=== PATIENT | male | born 1930 | race Caucasian/White ===

== ENCOUNTER 2018-07-07 16:08 | Inpatient (IN) ==
--- NOTE | 2018-07-07 16:20 | Emergency Department Note ---
Weakness HPI - General Chief complaint: Weakness Stated complaint: Generalized Weakness Time Seen by Provider: 07/07/18 16:11 Mode of arrival: EMS - History of Present Illness HPI Narrative: 87-year-old male was brought to the emergency department by EMS with a chief complaint of right hand redness, swelling, and pain that his noticed today. His reports that he has been slightly weaker over the last several days. Patient was seen in the emergency department 4 days ago for weakness, and workup was negative for infectious causes. Chest x-ray was normal. The states that she is going to get a lift chair to help him stand at home to help with transfers. She is unwilling at this time to consider placement at [facility]. Patient has a history of Parkinson's, type 2 diabetes, hyperlipidemia, A. fib, anemia, and hypertension. The reports that this afternoon when she checked his blood glucose she got a reading of 380. Accu-Chek here in the emergency department is 181. He denies any chest pain, shortness breath, difficulty breathing, cough, fevers, chills, abdominal pains, nausea,, vomiting, or diarrhea. - Related Data Home Medications Medication Instructions Recorded Confirmed cholecalciferol (vitamin D3) 400 800 unit PO QDAY cap 01/25/17 07/07/18 unit capsule calcium carbonate 600 mg calcium 600 mg PO QDAY tab 12/19/17 07/07/18 (1,500 mg) tablet Carbidopa/Levodopa 2 each PO TID 07/07/18 07/07/18 [Carbidopa-Levodopa 25-100 Tab] Multivit-Min/FA/Lycopen/Lutein 1 tab PO DAILY 07/07/18 07/07/18 [Centrum Silver Tablet] Warfarin Sodium [Jantoven] 2.5 mg PO DAILY 07/07/18 07/07/18 Previous Rx's Medication Instructions Recorded tamsulosin 0.4 mg capsule 0.4 mg PO QDAY #90 cap 12/06/17 digoxin 125 mcg tablet 125 mcg PO QDAY #90 tab 01/30/18 glipizide 5 mg tablet 5 mg PO BID #180 tab 01/30/18 simvastatin 40 mg tablet 40 mg PO QPM #90 tab 03/11/18 pioglitazone 45 mg tablet 45 mg PO QDAY #90 tab 03/18/18 carvedilol 3.125 mg tablet 3.125 mg PO BID #180 tab 04/10/18 finasteride 5 mg tablet 5 mg PO QDAY #90 tab 04/10/18 metformin 500 mg tablet 500 mg PO BID #180 tab 06/10/18 Allergies Allergy/AdvReac Type Severity Reaction Status Date / Time No Known Drug Allergies Allergy Unknown Unknown Verified 07/03/18 14:04 Review of Systems Review of Systems: Except as noted in the HPI, a Review of Systems was found to be negative. Specifically: Constitutional: No chronic fatigue, unexplained weight gain, or weight loss. Eyes: No visual impairment, no pain, watering, discharge, or itching. ENT: No ear or sinus infections. No reoccurring nosebleeds, no chronic nasal congestion. No mouth lesions or dental pain. No throat pain or dysphagia. Respiratory: No wheezing, dyspnea on exertion, or chronic cough. CV: No chest pain, cyanosis, palpitations, dizziness, or fainting. GI: No abdominal pain, reflux symptoms, nausea, vomiting, or diarrhea. Musculoskeletal: Positive weakness and right hand pain, swelling, and redness. See HPI. Neurologic: No headache, numbness, dizziness, or seizures. Endocrine: No hot or cold intolerances, excessive sweating, excessive thirst, or frequent urination. Hematologic/lymphatic: No blood disorder. No swollen lymph nodes. Integumentary: No problem with rashes, eczema, changing of skin lesions. No nail abnormalities. Past Medical History - Past Medical History Medical history: Reports: arthritis, atrial fibrillation, coronary artery disease, DM, hyperlipidemia, hypertension, other Surgical history ED: Reports: cataract, cholecystectomy, herniorrhaphy, knee replacement (bilateral), orthopedic, other (back, rotator cuff) - Social History smoking status: Former smoker Alcohol use: Reports: None Physical Exam Limitations: no limitations General appearance: alert, in no apparent distress Head: normal inspection Eye: Present: normal appearance, PERRL, EOMI. Absent: scleral icterus, conjunctival injection ENT: mucous membranes moist Neck: Present: trachea midline. Absent: lymphadenopathy, thyromegaly Chest: Present: normal inspection, symmetric chest wall rise. Absent: tenderness Respiratory: Present: normal lung sounds bilaterally. Absent: respiratory distress, wheezes, stridor, accessory muscle use, prolonged expiratory phase Cardiovascular: Present: regular rate, normal rhythm. Absent: systolic murmur, diastolic murmur Abdominal: Present: soft, normal bowel sounds. Absent: distention, tenderness, rigidity Extremities: Present: normal inspection, full ROM, normal capillary refill. Absent: pretibial edema Hand: Present: other (Erythema and swelling to the base of right thumb. This area is tender to touch. Decreased range of motion due to pain. Radial pulse 2 +. Capillary refill less than 3 seconds. Sensation normal.) Back: Present: normal inspection, full ROM Neurological: Present: alert, oriented X3 Psychiatric: Present: normal affect, normal mood Skin: Present: warm, dry, intact Course Vital Signs Temperature 98.4 F 07/07/18 16:09 Pulse Rate 94 H 07/07/18 16:09 Respiratory Rate 20 07/07/18 16:09 Pulse Oximetry (%) 97 07/07/18 16:09 Temperature 97.8 F 07/07/18 18:37 Pulse Rate 94 H 07/07/18 18:56 Respiratory Rate 23 H 07/07/18 18:56 Blood Pressure 192/89 07/07/18 18:47 Pulse Oximetry (%) 100 07/07/18 18:56 Weakness - MDM Narrative Medical decision making narrative: Urinalysis shows moderate bacteria, high amount of white blood cells. Patient is influenza A positive. CBC has a normal white blood count, but lactic acid is a 2.5. The patient does have some weakness. The urine will be sent for culture. Spoke with Dr. Loyd who will accept the patient for admission at [facility] medical floor. - Lab Data Lab results reviewed: Yes I reviewed the patient's lab results. Lab results narrative: Influenza A positive. Result diagrams: 07/07/18 16:30 07/07/18 16:30 Lab Results 07/07/18 07/07/18 07/07/18 Range/Units 16:30 16:30 16:30 WBC 6.9 (4.5-11.0) K/mcL RBC 3.88 L (4.50-5.90) M/mcL Hgb 11.2 L (13.5-16.5) g/dL Hct 33.8 L (41.0-55.0) % MCV 87.2 (80.0-100.0) fL MCH 28.9 (26.0-34.0) pg MCHC 33.2 (31.0-36.0) g/dL RDW 14.3 (11.5-14.5) % Plt Count 177 (140-440) K/mcL MPV 8.4 (7.4-10.4) fL Gran % 85.3 H (38.0-78.0) % Lymph % (Auto) 8.0 L (15.5-49.0) % Pickens % (Auto) 6.7 (1.0-12.0) % Eos % (Auto) 0 (0.0-7.0) % Baso % (Auto) 0 (0.0-2.0) % Gran # 5.9 (1.8-8.0) K/mcL Lymph # (Auto) 0.5 L (1.5-4.8) K/mcL Pickens # (Auto) 0.5 (0.1-0.9) K/mcL Eos # (Auto) 0 (0.0-0.7) K/mcL Baso # (Auto) 0 (0.0-0.3) K/mcL ESR 71 H (0-15) mm/hr VBG Lactic Acid 2.5 H (0.5-2.0) mmol/L Sodium 135 (133-145) mmol/L Potassium 4.5 (3.3-5.1) mmol/L Chloride 100 (96-108) mmol/L Carbon Dioxide 25 (22-30) mmol/L Anion Gap 10.0 (8-16) BUN 12 (8-23) mg/dl Creatinine 0.7 (0.7-1.2) mg/dl GFR Calculation 84 Glucose 207 H (70-105) mg/dL Uric Acid (2.5-8.0) mg/dL Calcium 9.1 (8.6-10.4) mg/dl Total Bilirubin 0.5 (0.0-1.0) mg/dL AST 15 (0-37) U/l ALT < 5 (0-40) U/l Alkaline Phosphatase 100 (39-117) U/L Total Protein 7.0 (5.9-8.4) gm/dL Albumin 3.4 (3.2-5.2) gm/dL Globulin 3.6 (2.2-3.7) gm/dL Albumin/Globulin Ratio 0.9 L (1.0-2.3) Urine Color Urine Appearance Urine pH (5.0-9.0) Ur Specific Harbert (1.000-1.035) Urine Protein (NEG) mg/dL Urine Glucose (UA) (NEG) mg/dL Urine Ketones (NEG) mg/dL Urine Occult Blood (<0.03) mg/dL Urine Nitrate (NEG) Urine Bilirubin (NEG) mg/dL Urine Urobilinogen (NEG) mg/dL Ur Leukocyte Esterase (NEG) /uL Urine RBC (0-1) /hpf Urine WBC (0-4) /hpf Ur Squamous Epith Cells (0-4) /hpf Amorphous Crystals (0) /hpf Urine Bacteria (0) /hpf Hyaline Casts (0-2) /lpf Urine Mucus (0) /hpf Ur Culture Indicated? Rheumatoid Factor (0-14) IU/ml 07/07/18 07/07/18 07/07/18 Range/Units 16:30 16:30 16:44 WBC (4.5-11.0) K/mcL RBC (4.50-5.90) M/mcL Hgb (13.5-16.5) g/dL Hct (41.0-55.0) % MCV (80.0-100.0) fL MCH (26.0-34.0) pg MCHC (31.0-36.0) g/dL RDW (11.5-14.5) % Plt Count (140-440) K/mcL MPV (7.4-10.4) fL Gran % (38.0-78.0) % Lymph % (Auto) (15.5-49.0) % Pickens % (Auto) (1.0-12.0) % Eos % (Auto) (0.0-7.0) % Baso % (Auto) (0.0-2.0) % Gran # (1.8-8.0) K/mcL Lymph # (Auto) (1.5-4.8) K/mcL Pickens # (Auto) (0.1-0.9) K/mcL Eos # (Auto) (0.0-0.7) K/mcL Baso # (Auto) (0.0-0.3) K/mcL ESR (0-15) mm/hr VBG Lactic Acid (0.5-2.0) mmol/L Sodium (133-145) mmol/L Potassium (3.3-5.1) mmol/L Chloride (96-108) mmol/L Carbon Dioxide (22-30) mmol/L Anion Gap (8-16) BUN (8-23) mg/dl Creatinine (0.7-1.2) mg/dl GFR Calculation Glucose (70-105) mg/dL Uric Acid 4.9 (2.5-8.0) mg/dL Calcium (8.6-10.4) mg/dl Total Bilirubin (0.0-1.0) mg/dL AST (0-37) U/l ALT (0-40) U/l Alkaline Phosphatase (39-117) U/L Total Protein (5.9-8.4) gm/dL Albumin (3.2-5.2) gm/dL Globulin (2.2-3.7) gm/dL Albumin/Globulin Ratio (1.0-2.3) Urine Color Jessica Urine Appearance Cloudy Urine pH 5.0 (5.0-9.0) Ur Specific Harbert 1.021 (1.000-1.035) Urine Protein 30 A (NEG) mg/dL Urine Glucose (UA) Negative (NEG) mg/dL Urine Ketones 5/tr A (NEG) mg/dL Urine Occult Blood Neg (<0.03) mg/dL Urine Nitrate Neg (NEG) Urine Bilirubin Neg (NEG) mg/dL Urine Urobilinogen 2.0 A (NEG) mg/dL Ur Leukocyte Esterase 250 A (NEG) /uL Urine RBC 2 H (0-1) /hpf Urine WBC 29 H (0-4) /hpf Ur Squamous Epith Cells 6 H (0-4) /hpf Amorphous Crystals Few A (0) /hpf Urine Bacteria Mod A (0) /hpf Hyaline Casts 1 (0-2) /lpf Urine Mucus Mod (0) /hpf Ur Culture Indicated? No Rheumatoid Factor < 10 (0-14) IU/ml - Radiology Data Radiology results reviewed: Yes I reviewed the patient's radiology results. Procedure(s): XR hand comp RT 3V Accession Number(s): [id number] CLINICAL INFORMATION: Pain and erythema COMPARISON: None. FINDINGS: There is no evidence of osteomyelitis or other focal osseous abnormalities. Moderate periarticular osteoporosis noted however. Severe degenerative change of the distal radial ulnar, STT, first CMC and the second and third MCP joints with moderate degenerative change in the interphalangeal joints. Heavy chondrocalcinosis noted in the TFCC. Mild diffuse soft tissue swelling noted which could indicate cellulitis IMPRESSION: Mild soft tissue swelling which could indicate cellulitis. No evidence of osteomyelitis. Multilevel degenerative change Heavy chondrocalcinosis in the TFCC the which may related to gout or pseudogout Procedure(s): XR chest 2V Accession Number(s): [id number] CLINICAL INFORMATION: Weakness COMPARISON: 07/03/2018 and 04/03/2016 FINDINGS: The heart is mildly enlarged but unchanged. Mediastinum and pulmonary vessels are normal. Mild scarring in the posterior left lower lobe is unchanged. Both costophrenic angles are blunted by scar as previously seen IMPRESSION: No acute disease Disposition Pt seen by [facility] INTERFACE DEVELOPER/PA only: Yes Clinical Impression: Influenza A, Weakness Disposition: Xfer As Inpt ([facility]) Condition: Fair Referrals: Benji Lira MD [Primary Care Provider] -
[2018-07-07 17:04] LABS: Basophils # (Auto) 0 K/mcL (0.0-0.3); Basophils % (Auto) 0 % (0.0-2.0); Eosinophils # (Auto) 0 K/mcL (0.0-0.7); Eosinophils % (Auto) 0 % (0.0-7.0); Granulocytes % (Auto) 85.3 % (38.0-78.0); Lymphocytes # (Auto) 0.5 K/mcL (1.5-4.8); Mean Cell Volume 87.2 fL (80.0-100.0); Mean Corpuscular HGB Conc 33.2 g/dL (31.0-36.0); Mean Corpuscular Hemoglobin 28.9 pg (26.0-34.0); Monocytes # (Auto) 0.5 K/mcL (0.1-0.9); Monocytes % (Auto) 6.7 % (1.0-12.0); Platelet Count 177 K/mcL (140-440); RBC 3.88 M/mcL (4.50-5.90); Red Cell Distribution Width 14.3 % (11.5-14.5)
[2018-07-07 17:18] LABS: Appearance,Urine CLOUDY; Bacteria,Urine MOD /hpf (0); Bilirubin,Urine NEG (NEG); Color,Urine AMBER; Glucose,Urine (UA) NEGATIVE (NEG); Leukocyte Esterase,Urine 250 /uL (NEG); Mucus,Urine MOD /hpf (0); Protein,Urine 30 mg/dL (NEG); Specific Gravity,Urine 1.021 (1.000-1.035); Urine Amorphous Crystals FEW /hpf (0); Urine Blood NEG mg/dL (<0.03); Urine Hyaline Cast 1 /lpf (0-2); Urine RBC 2 /hpf (0-1); Urine Squamous Epithelial Cell 6 /hpf (0-4); Urine WBC 29 /hpf (0-4)
[2018-07-07 17:22] LABS: Uric Acid 4.9 mg/dL (2.5-8.0)
[2018-07-07 17:24] LABS: ALT/SGPT < 5 U/l (0-40); Albumin 3.4 gm/dL (3.2-5.2); Albumin/Globulin Ratio 0.9 (1.0-2.3); Alkaline Phosphatase 100 U/L (39-117); Blood Urea Nitrogen 12 mg/dl (8-23)
[2018-07-07 17:37] LABS: Rheumatoid Factor < 10 IU/ml (0-14)
[2018-07-07 17:57] LABS: Erythrocyte Sedimentation Rate 71 mm/hr (0-15)
--- NOTE | 2018-07-07 18:01 | XRay Report ---
CLINICAL INFORMATION: Weakness COMPARISON: 07/03/2018 and 04/03/2016 FINDINGS: The heart is mildly enlarged but unchanged. Mediastinum and pulmonary vessels are normal. Mild scarring in the posterior left lower lobe is unchanged. Both costophrenic angles are blunted by scar as previously seen IMPRESSION: No acute disease Interpreted and Authenticated by: Chalino Katz 07/07/18
--- NOTE | 2018-07-07 18:03 | XRay Report ---
CLINICAL INFORMATION: Pain and erythema COMPARISON: None. FINDINGS: There is no evidence of osteomyelitis or other focal osseous abnormalities. Moderate periarticular osteoporosis noted however. Severe degenerative change of the distal radial ulnar, STT, first CMC and the second and third MCP joints with moderate degenerative change in the interphalangeal joints. Heavy chondrocalcinosis noted in the TFCC. Mild diffuse soft tissue swelling noted which could indicate cellulitis IMPRESSION: Mild soft tissue swelling which could indicate cellulitis. No evidence of osteomyelitis. Multilevel degenerative change Heavy chondrocalcinosis in the TFCC the which may related to gout or pseudogout Interpreted and Authenticated by: Chalino Katz 07/07/18
[2018-07-07] MEDS ORDERED: 0.9 % SODIUM CHLORIDE 1,000 ML IV ONE ×2 (18:37→19:19)
[2018-07-07] MEDS ORDERED: VANCOMYCIN 1,000 MG in 0.9 % SODIUM CHLORIDE 250 ML IV ONE (18:50)
[2018-07-07] MEDS ORDERED: DEXTROSE 50% 50 ML VIAL IV PRN ×2 (19:00→19:46)
[2018-07-07] MEDS ORDERED: cefTRIAXone 2 GM in DEXTROSE 5% IN WATER 50 ML IV SCH (19:00)
[2018-07-07] MEDS ORDERED: DEXTROSE 31 GM ORAL.SUSP PO PRN ×2 (19:00→19:46)
--- NOTE | 2018-07-07 19:02 | Emergency Department Note ---
ED Note Addendum Note Addendum: Mid-level agree with diagnosis and treatment patient appears to have influenza positive test UA and elevated lactic acid plan patient admitted to the hospitalist at [facility]
--- NOTE | 2018-07-07 19:06 | Internal Med History&Physical ---
Medical - H&P: HPI Patient information: Note initiated : 07/07/18 at 7:01 pm Service Date, if different from initiated Date: [] Patient: Hugo Yang a 87 y/o M admitted on for Generalized Weakness. Chief Complaint: [] History of present illness: Mr. Yang is a 87 year old M with h/o parkinsons disease, with gradually declining health, presents to the ER today with complaints of weakness going on for the last few days, was present in the ER on the sixth of this month with complaints of weakness workup was unrevealing at that time. The patient continued to remain weak, had an episode of diarrhea yesterday, and today the noticed redness and swelling on the right wrist at the base of the thumb. This region is painful erythematous and warm to touch and therefore she brought him back to the hospital for further evaluation. The patient complains about some pain in the thumb, otherwise has no complaints. He uses diapers and denies any urinary complaints. According to the he has been eating okay but has not been drinking enough fluids. She is finding it hard to take care of him at home at this time. On my history taking there was no mention about respiratory symptoms however the ED did check for influenza and influenza is positive. The patient denies any headache changes in vision, has chronic difficulty in swallowing denies any chest pain shortness of breath denies any abdominal pain nausea vomiting denies any other joint issues except for the swelling in the right hand. In the emergency room on presentation the temperature is 98.4, heart rate 91 blood pressure 164 x 73 saturating 100% on room air. Patient has WBC count of 6.9 hemoglobin 11.2 platelets 177, patient has 85% granulocytes. Chemistry shows sodium of 135 potassium 4.5 bicarbonate 25 and creatinine 0.7, uric acid is 4.9. ESR is elevated at 71, lactic acid is elevated at 2.5, urinalysis is positive leukocyte esterase RBCs and WBCs but also has some epithelial cells and mucus. RA test is negative Hand x-ray shows mild diffuse soft tissue swelling likely cellulitis, chest x- ray is interpreted as negative. Given old age, inability to manage the patient at home, cellulitis of the hand with elevated lactic acid we will admit this patient as inpatient status to the hospital. The patient will likely need more than 2 midnight stay for IV antibiotics, as well as rehab All systems: reviewed and no additional remarkable complaints except as stated ( as per HPI rest negative) Medical - H&P: PMH Medical history: Medical History Urinary tract infection (Acute) Generalized weakness (Acute) Abrasion head (Acute) Fall (Acute) Primary atypical pneumonia (Acute) Community acquired pneumonia (Resolved) Benign prostatic hyperplasia without lower urinary tract symptoms (Chronic) Dysphagia (Chronic) Wellness examination (Chronic 06/20/10) Vitreous degeneration (Chronic) Vitamin D deficiency (Chronic 02/09/14) Skin malignant neoplasm (Chronic) Pseudophakia (Chronic) Diabetic neuropathy (Chronic) Myelodysplastic syndrome (Chronic) Lack of coordination (Chronic) Kyphosis (acquired) (postural) (Chronic) Hypertension, essential (Chronic) Hyperlipidemia (Chronic) Hydrocele (Chronic) Shingles (herpes zoster) polyneuropathy (Chronic) Inguinal hernia (Chronic) Fatigue (Chronic 06/23/13) Diabetes mellitus, type II (Chronic) Constipation (Chronic 11/08/14) BPH without obstruction/lower urinary tract symptoms (Chronic 01/12/14) Blepharitis (Chronic) Atrial fibrillation (Chronic) Anemia (Chronic 12/10/13) Actinic keratitis (Chronic) Acute respiratory failure with hypoxia (Resolved) Sepsis (Resolved) Cellulitis (Inactive) Irregular heart beats (Inactive) Joint pain (Inactive) PPD screening test (Inactive 07/29/81) Surgical history: Past Surgical History H/O colonoscopy (Inactive) H/O rotator cuff surgery (Inactive) History of back surgery (Inactive) History of hernia surgery (Inactive) History of knee replacement procedure of left knee (Inactive) History of knee replacement procedure of right knee (Inactive) Hx of cholecystectomy (Inactive) Hx of tonsillectomy (Inactive) Pertinent family history: Family History Brother Diabetes mellitus Acute myocardial infarction Mother Diabetes mellitus Acute myocardial infarction Father Cerebrovascular accident Medical - H&P: Meds Home Medications Medication Instructions Recorded Confirmed Type cholecalciferol (vitamin D3) 400 800 unit PO QDAY cap 01/25/17 07/07/18 History unit capsule tamsulosin 0.4 mg capsule 0.4 mg PO QDAY #90 cap 12/06/17 07/07/18 Rx calcium carbonate 600 mg calcium 600 mg PO QDAY tab 12/19/17 07/07/18 History (1,500 mg) tablet digoxin 125 mcg tablet 125 mcg PO QDAY #90 tab 01/30/18 07/07/18 Rx glipizide 5 mg tablet 5 mg PO BID #180 tab 01/30/18 07/07/18 Rx simvastatin 40 mg tablet 40 mg PO QPM #90 tab 03/11/18 07/07/18 Rx pioglitazone 45 mg tablet 45 mg PO QDAY #90 tab 03/18/18 07/07/18 Rx carvedilol 3.125 mg tablet 3.125 mg PO BID #180 tab 04/10/18 07/07/18 Rx finasteride 5 mg tablet 5 mg PO QDAY #90 tab 04/10/18 07/07/18 Rx metformin 500 mg tablet 500 mg PO BID #180 tab 06/10/18 07/07/18 Rx Carbidopa/Levodopa 2 each PO TID 07/07/18 07/07/18 History [Carbidopa-Levodopa 25-100 Tab] Multivit-Min/FA/Lycopen/Lutein 1 tab PO DAILY 07/07/18 07/07/18 History [Centrum Silver Tablet] Warfarin Sodium [Jantoven] 2.5 mg PO DAILY 07/07/18 07/07/18 History Allergies Allergy/AdvReac Type Severity Reaction Status Date / Time No Known Drug Allergies Allergy Unknown Unknown Verified 07/03/18 14:04 Medical - H&P: Exam - Constitutional Vitals: Temp Pulse Resp BP Pulse Ox 97.8 F 94 H 23 H 192/89 100 07/07/18 18:37 07/07/18 18:56 07/07/18 18:56 07/07/18 18:47 07/07/18 18:56 Exam: GENERAL: The patient is thin frail old gentleman, in no apparent distress. Is alert and oriented x3. but hard of hearing VITAL SIGNS: Reviewed and as noted elsewhere. HEENT: Head is normocephalic and atraumatic. Extraocular muscles are intact. Pupils are equal, round, and reactive to light. Nares appeared normal. Mouth appears any without lesions. Mucous membranes are dry NECK: Normal to inspection, Supple, No lymphadenopathy or thyromegaly. LUNGS: Air entry equal on both sides, no wheezing, crackles or rhonchi noted. No accessory muscles of respiration HEART: Regular rate and rhythm normal, S1 and S2 heard, no Gallop, S3 or Rub Noted, No Gross murmur heard. ABDOMEN: Soft, nontender, and nondistended. Positive bowel sounds. No hepatosplenomegaly was noted. EXTREMITIES: No cyanosis, clubbing, rash, lesions or edema. NEUROLOGIC: Cranial nerves II through XII are grossly intact. Motor and Sensory System Grossly Intact. Masked facies, sluggish movements (parkinsons) PSYCHIATRIC: Normal affect, Normal Mood. Appropriate Behavior. SKIN: No ulceration or wounds noted, No jaundice, No rash noted. Right hand base of right hand, carpo metacarpal joint/ there is swelling of the hand, erythema and tenderness, no fluctuation. Medical - H&P: Reslt - Labs CBC & Chem 7: 07/07/18 16:30 07/07/18 16:30 Labs: Short CBC 07/07/18 Range/Units 16:30 WBC 6.9 (4.5-11.0) K/mcL Hgb 11.2 L (13.5-16.5) g/dL Hct 33.8 L (41.0-55.0) % Plt Count 177 (140-440) K/mcL BMP 07/07/18 16:30 Sodium 135 Potassium 4.5 Chloride 100 Carbon Dioxide 25 BUN 12 Creatinine 0.7 Glucose 207 H Calcium 9.1 Liver Function 07/07/18 Range/Units 16:30 Total Bilirubin 0.5 (0.0-1.0) mg/dL AST 15 (0-37) U/l ALT < 5 (0-40) U/l Alkaline Phosphatase 100 (39-117) U/L Albumin 3.4 (3.2-5.2) gm/dL Urine 07/07/18 Range/Units 16:44 Urine Color Jessica Urine Appearance Cloudy Urine pH 5.0 (5.0-9.0) Ur Specific Montara 1.021 (1.000-1.035) Urine Protein 30 A (NEG) mg/dL Urine Glucose (UA) Negative (NEG) mg/dL Medical - H&P: A/P - Narrative A/P Narrative: A/P Hand Cellulitis- Start on IV vancomycin and IV Rocephin, blood cultures sent, follow up results, monitor closely. consider hand surgery consult if worsening. Sepsis/ lactic acidosis- patient has source of infection and elevated lactate, IV fluids given, will trend lactate, be gentle with IV fluids given old age, BP is stable. check rectal temperature. Possible gout flare? Although uric acid is normal, pt location makes me wonder if gout is at play here. Will cover with colchicine for now, Consider further imaging if needed. UTI- patient ua is abnormal, but pt has no symptoms, uses a daiper, will recheck ua, he should be covered by ABX at this time. Influenzae A- patient has no symptoms suggestive of influenza, but test is positive, given old age, at this time, I would start patient on tamiflu for now. Diabetes - Hold oral medications, start on SSI insulin for glucose control HTN- Resume home bp medications Atrial fibrillation- Rate controlled, continue coumadin, check inr, coumadin to be managed by pharmacy Parkinsons disease- home medications to be resumed. It seems his disease is progressing and he is progressively being limited in his activities. Not sure if he is still following with neurology, will follow up. May need some changes in medication regime. Dysphagia- ST evaluation Weakness- marija get rehab with OT/PT DVT hep sq Diet dysphagia diet, level 2 Full code Social History - Tobacco smoking status: Former smoker - Quit Details quit date: 10/01/75 pack-years: 1 - Alcohol alcohol intake frequency: does not drink - Substance use substance use type: does not use
[2018-07-07] MEDS ORDERED: ALBUTEROL SULFATE 2.5 MG/3 ML NEBULIZER NEB PRN (19:46)
[2018-07-07] MEDS ORDERED: HYDROmorphone 2 MG/ML VIAL IV PRN (19:46)
[2018-07-07] MEDS ORDERED: ONDANSETRON 4 MG/2 ML VIAL IV PRN (19:46)
[2018-07-07] MEDS ORDERED: ACETAMINOPHEN 325 MG TABLET PO PRN (19:46)
[2018-07-07] MEDS ORDERED: NALOXONE HCL 0.4 MG/ML VIAL IV PRN (19:46)
[2018-07-07] MEDS ORDERED: cefTRIAXone 1 GM in DEXTROSE 5% IN WATER 50 ML IV SCH (19:46)
[2018-07-07] MEDS: COLCHICINE 0.6 MG TABLET PO SCH ×2 (20:46→21:45)
[2018-07-07] MEDS: CARVEDILOL 3.125 MG TABLET PO SCH (20:46)
[2018-07-07] MEDS: oxyCODONE HCL 5 MG TABLET PO PRN (20:46)
[2018-07-07] MEDS: HEPARIN 5,000 UNIT/ML VIAL SQ SCH (20:47)
[2018-07-07] MEDS: cefTRIAXone 1 GM VIAL IV SCH (20:47)
[2018-07-07] MEDS: CARBIDOPA/LEVODOPA 25/100 TABLET PO SCH (20:47)
[2018-07-07] MEDS: SIMVASTATIN 40 MG TABLET PO SCH (20:47)
[2018-07-07] MEDS: OSELTAMIVIR PHOSPHATE 75 MG CAPSULE PO SCH (20:47)
[2018-07-07] MEDS ORDERED: cloNIDine HCL 0.1 MG TABLET PO PRN (20:48)
[2018-07-07] MEDS: LACTATED RINGERS 1,000 ML IV SCH (20:48)
[2018-07-07] MEDS: INSULIN LISPRO 1 UNIT/0.01 ML UNIT SQ SCH (20:49)
[2018-07-07] MEDS ORDERED: INSULIN LISPRO 1 UNIT/0.01 ML UNIT SQ SCH (21:00)
[2018-07-07] MEDS: 0.9 % SODIUM CHLORIDE 10 ML SYRINGE IV SCH (21:46)
[2018-07-08] MEDS: LACTATED RINGERS 1,000 ML IV SCH (03:55)
[2018-07-08] MEDS: 0.9 % SODIUM CHLORIDE 10 ML SYRINGE IV SCH ×3 (05:26→23:20)
[2018-07-08 05:45] LABS: Basophils # (Auto) 0 K/mcL (0.0-0.3); Basophils % (Auto) 0.2 % (0.0-2.0); Eosinophils # (Auto) 0 K/mcL (0.0-0.7); Eosinophils % (Auto) 0 % (0.0-7.0); Granulocytes % (Auto) 80.3 % (38.0-78.0); Lymphocytes # (Auto) 0.8 K/mcL (1.5-4.8); Mean Cell Volume 88.3 fL (80.0-100.0); Mean Corpuscular Hemoglobin 29.1 pg (26.0-34.0); Monocytes # (Auto) 0.6 K/mcL (0.1-0.9); Monocytes % (Auto) 8.5 % (1.0-12.0); Platelet Count 159 K/mcL (140-440); RBC 3.56 M/mcL (4.50-5.90); Red Cell Distribution Width 14.3 % (11.5-14.5)
[2018-07-08 06:35] LABS: ALT/SGPT < 5 U/l (0-40); Albumin 2.9 gm/dL (3.2-5.2); Albumin/Globulin Ratio 0.9 (1.0-2.3); Alkaline Phosphatase 82 U/L (39-117); Bilirubin,Direct < 0.2 mg/dL (0.0-0.3); Blood Urea Nitrogen 10 mg/dl (8-23); Gamma Glutamyl Transpeptidase 17 U/L (8-61); Uric Acid 4.3 mg/dL (2.5-8.0)
[2018-07-08] MEDS: INSULIN LISPRO 1 UNIT/0.01 ML UNIT SQ SCH ×4 (08:38→20:57)
[2018-07-08] MEDS ORDERED: MAGNESIUM SULFATE 2 GM/50 ML BAG IV ONE (08:59)
[2018-07-08] MEDS ORDERED: WARFARIN 2.5 MG TABLET PO SCH (09:00)
[2018-07-08] MEDS: FINASTERIDE 5 MG TABLET PO SCH (09:11)
[2018-07-08] MEDS: CARBIDOPA/LEVODOPA 25/100 TABLET PO SCH ×3 (09:11→21:15)
[2018-07-08] MEDS: TAMSULOSIN 0.4 MG CAPSULE PO SCH (09:11)
[2018-07-08] MEDS: COLCHICINE 0.6 MG TABLET PO SCH (09:11)
[2018-07-08] MEDS: VITAMIN D3 400 UNIT TABLET PO SCH (09:11)
[2018-07-08] MEDS: CARVEDILOL 3.125 MG TABLET PO SCH ×2 (09:12→17:52)
[2018-07-08] MEDS: cefTRIAXone 1 GM VIAL IV SCH (09:12)
[2018-07-08] MEDS: OSELTAMIVIR PHOSPHATE 75 MG CAPSULE PO SCH ×2 (09:12→21:15)
[2018-07-08] MEDS: oxyCODONE HCL 5 MG TABLET PO PRN ×2 (09:12→14:40)
[2018-07-08] MEDS: CALCIUM (OYSTER SHELL) 500 MG TABLET PO SCH (09:12)
[2018-07-08] MEDS: MULTIVIT,THER IRON,CA,FA & MIN 1 TABLET PO SCH (09:12)
[2018-07-08] MEDS: HEPARIN 5,000 UNIT/ML VIAL SQ SCH ×2 (09:13→21:15)
--- NOTE | 2018-07-08 11:57 | Internal Med Progress Note ---
Medical - PN: Subj Patient information: Note initiated : 07/08/18 at 11:55 am Service Date, if different from initiated Date: [] Patient: Hugo Yang a 87 y/o M admitted on 07/07/18 for Generalized Weakness. Chief Complaint: [] Interval history: Mr. Yang is a 87 year old M with h/o parkinsons disease, with gradually declining health, presents to the ER today with complaints of weakness going on for the last few days, was present in the ER on the sixth of this month with complaints of weakness workup was unrevealing at that time. The patient continued to remain weak, had an episode of diarrhea yesterday, and today the noticed redness and swelling on the right wrist at the base of the thumb. This region is painful erythematous and warm to touch and therefore she brought him back to the hospital for further evaluation. The patient complains about some pain in the thumb, otherwise has no complaints. He uses diapers and denies any urinary complaints. According to the he has been eating okay but has not been drinking enough fluids. She is finding it hard to take care of him at home at this time. On my history taking there was no mention about respiratory symptoms however the ED did check for influenza and influenza is positive. The patient denies any headache changes in vision, has chronic difficulty in swallowing denies any chest pain shortness of breath denies any abdominal pain nausea vomiting denies any other joint issues except for the swelling in the right hand. In the emergency room on presentation the temperature is 98.4, heart rate 91 blood pressure 164 x 73 saturating 100% on room air. Patient has WBC count of 6.9 hemoglobin 11.2 platelets 177, patient has 85% granulocytes. Chemistry shows sodium of 135 potassium 4.5 bicarbonate 25 and creatinine 0.7, uric acid is 4.9. ESR is elevated at 71, lactic acid is elevated at 2.5, urinalysis is positive leukocyte esterase RBCs and WBCs but also has some epithelial cells and mucus. RA test is negative Hand x-ray shows mild diffuse soft tissue swelling likely cellulitis, chest x- ray is interpreted as negative. Given old age, inability to manage the patient at home, cellulitis of the hand with elevated lactic acid we will admit this patient as inpatient status to the hospital. The patient will likely need more than 2 midnight stay for IV antibiotics, as well as rehab 07/08 Patient seen and examined, no acute overnight events. Patient still has significant pain in the right wrist, erythema as well as warmth at that site. Looks somewhat better compared to yesterday. Denies any acute complaints or concerns. Labs are stable Plan to get an MRI of the right wrist hand. Consider ortho consult based on results. Pertinent ROS: Denies headache, dizziness Denies chest pain, palpitations Denies cough or shortness of breath Denies abdominal pain, nausea or vomiting. - Constitutional Vitals: Vital Signs Temp Pulse Resp BP Pulse Ox 99.0 F 82 19 159/80 93 07/08/18 08:00 07/08/18 08:00 07/08/18 08:00 07/08/18 08:00 07/08/18 08:00 Period Temp Pulse Resp BP Sys/Aaron Pulse Ox Last 24 Hr 97.8 F-99.7 F 70-95 14-28 154-195/66-123 93-100 Intake and Output 07/07/18 07/08/18 07/08/18 21:59 05:59 13:59 Intake Total 2250 / 2250 1000 / 1000 1110 / 1110 Output Total Balance 2249 / 2249 998 / 998 1109 / 1109 Weight 150 lb 8 oz Intake & Output: Intake & Output 07/07/18 07/08/18 07/08/18 21:59 05:59 13:59 Intake Total 2250 / 2250 1000 / 1000 1110 / 1110 Output Total / Balance 2249 / 2249 998 / 998 1109 / 1109 Weight 150 lb 8 oz Intake: IV 2250 / 2250 1000 / 1000 1050 / 1050 Sodium Chloride 0.9% 1,000 ml @ 1500 / 1500 Wide Open IV BOLUS ONE Rx#: [id number] Lactated Ringers 1,000 ml @ 150 1000 / 1000 mls/hr IV .[id number] [facility] Rx#: [id number] Vancomycin 1,000 mg In Sodium 183 / 183 Chloride 0.9% 250 ml @ 250 mls/ hr IV ONCE ONE Rx#:[id number] Oral 60 / 60 Output: # of times incontinent of urine 2 / 2 Other: Meal Breakfast Percent of Meal Consumed 75% Feeding Ability Total Assistance Urine Appearance Cloudy Sediment Urine Color Straw Exam: Constitutional; Afebrile, cooperative, alert, not in distress. Frail old gentleman ERespiratory system: Air Entry equal on both sides, No crackles or wheezing, no rhonchi. CVS- Rate rhythm irregular, S1,S2 heard, no gallop, no rub. 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 Right wrist- erythema, increased warmth, tender to touch. Medical - PN: Obj Da - Labs CBC & Chem 7: 07/08/18 03:35 07/08/18 03:35 Labs: Abnormal Lab Results 07/08/18 07/08/18 07/08/18 03:35 03:35 03:35 RBC 3.56 L Hgb 10.4 L Hct 31.4 L Gran % 80.3 H Lymph % (Auto) 11.0 L Lymph # (Auto) 0.8 L ESR PT 29.7 H INR 2.9 H VBG Lactic Acid Creatinine 0.6 L Glucose 129 H Calcium 8.4 L Magnesium 1.3 L Albumin 2.9 L Albumin/Globulin Ratio 0.9 L Urine Protein Urine Ketones Urine Urobilinogen Ur Leukocyte Esterase Urine RBC Urine WBC Ur Squamous Epith Cells Amorphous Crystals Urine Bacteria 07/07/18 07/07/18 07/07/18 16:44 16:30 16:30 RBC Hgb Hct Gran % Lymph % (Auto) Lymph # (Auto) ESR PT INR VBG Lactic Acid 2.5 H Creatinine Glucose 207 H Calcium Magnesium Albumin Albumin/Globulin Ratio 0.9 L Urine Protein 30 A Urine Ketones 5/tr A Urine Urobilinogen 2.0 A Ur Leukocyte Esterase 250 A Urine RBC 2 H Urine WBC 29 H Ur Squamous Epith Cells 6 H Amorphous Crystals Few A Urine Bacteria Mod A 07/07/18 16:30 RBC 3.88 L Hgb 11.2 L Hct 33.8 L Gran % 85.3 H Lymph % (Auto) 8.0 L Lymph # (Auto) 0.5 L ESR 71 H PT INR VBG Lactic Acid Creatinine Glucose Calcium Magnesium Albumin Albumin/Globulin Ratio Urine Protein Urine Ketones Urine Urobilinogen Ur Leukocyte Esterase Urine RBC Urine WBC Ur Squamous Epith Cells Amorphous Crystals Urine Bacteria Meds: Medications Albuterol Sulfate (Ventolin) 2.5 mg NEB Q2HP PRN PRN Reason: Shortness Of Breath Calcium Carbonate/Glycine (Oscal) 600 mg PO QDAY [facility] Last Admin: 07/08/18 09:12 Dose: 600 mg Carbidopa/Levodopa (Sinemet 25/100) 2 tab PO TID [facility] Last Admin: 07/08/18 09:11 Dose: 2 tab Carvedilol (Coreg) 3.125 mg PO BIDCC [facility] Last Admin: 07/08/18 09:12 Dose: 3.125 mg Ceftriaxone Sodium (Rocephin) 1 gm IV Q24H [facility] Last Admin: 07/08/18 09:12 Dose: 1 gm Clonidine HCl (Catapres) 0.1 mg PO Q4HP PRN PRN Reason: Hypertension Colchicine (Colcrys) 0.6 mg PO BID [facility] Last Admin: 07/08/18 09:11 Dose: 0.6 mg Dextrose (Dextrose 50%) 0 ml IV UD PRN PRN Reason: Hypoglycemia Diagnostic Test (Pha) (Accu-Chek) 1 each FS ACHS [facility] Last Admin: 07/08/18 08:37 Dose: 1 each Digoxin (Lanoxin) 125 mcg PO DAILY@1200 [place] Finasteride (Proscar) 5 mg PO QDAY [facility] Last Admin: 07/08/18 09:11 Dose: 5 mg Glucose (Insta-Glucose) 15 gm PO PRN PRN PRN Reason: Hypoglycemia Heparin Sodium (Porcine) (Heparin) 5,000 unit SQ Q12 [facility] Last Admin: 07/08/18 09:13 Dose: 5,000 unit Hydromorphone HCl (Dilaudid) 0.5 mg IV Q2HP PRN PRN Reason: PAIN LEVEL > 6 Last Admin: 07/07/18 20:47 Dose: 0.5 mg Acetaminophen (Ofirmev) 1,000 mg in 100 mls @ 200 mls/hr IV TID [facility] Insulin Human Lispro (Humalog) 0 unit SQ [facility]; Protocol Last Admin: 07/08/18 08:38 Dose: Not Given Iron Carb/Multivit/[place]/Folic Acid (Multivitamin W/Minerals) 1 tab PO DAILY [facility] Last Admin: 07/08/18 09:12 Dose: 1 tab Naloxone HCl (Narcan) 0.1 mg IV Q2MIN PRN PRN Reason: Opiate Reversal Ondansetron HCl (Zofran) 4 mg IV Q6HP PRN PRN Reason: Nausea And Vomiting Oseltamivir Phosphate (Tamiflu) 75 mg PO BID [facility] Last Admin: 07/08/18 09:12 Dose: 75 mg Oxycodone HCl (Roxicodone) 5 mg PO Q4HP PRN PRN Reason: PAIN LEVEL 3-6 Last Admin: 07/08/18 09:12 Dose: 5 mg Simvastatin (Zocor) 40 mg PO QPM [facility] Last Admin: 07/07/18 20:47 Dose: 40 mg Sodium Chloride (Saline Flush) 10 ml IV Q8 [facility] Last Admin: 07/08/18 05:26 Dose: 10 ml Tamsulosin HCl (Flomax) 0.4 mg PO QDAY [facility] Last Admin: 07/08/18 09:11 Dose: 0.4 mg Vitamin D (Vitamin D3) 800 unit PO QDAY [facility] Last Admin: 07/08/18 09:11 Dose: 800 unit Warfarin Sodium (Coumadin Per Pharmacy) 1 order PO DAILY@1400 [facility] Medical - PN: A/P - Time Spent With Patient Total time spent is greater than 50% in coordination of care (as documented) at patient's floor/unit and/or counseling patient: - Narrative A/P Narrative: A/P Hand Cellulitis/ vs Osteomyelitis - on IV vancomycin and IV Rocephin, blood cultures sent, follow up results, monitor closely. consider hand surgery consult if worsening. Try to Get MRI of the hand/wrist today. Sepsis/ lactic acidosis- resolved Possible gout flare? Although uric acid is normal, pt location makes me wonder if gout is at play here. Will cover with colchicine for now, see if it responds , d/c same if no improvement in 24-48 hrs UTI- patient ua is abnormal, but pt has no symptoms, uses a daiper, will recheck ua, he should be covered by ABX at this time. Influenzae A- patient has no symptoms suggestive of influenza, but test is positive, given old age, at this time, I would start patient on tamiflu for now. Diabetes - Hold oral medications, start on SSI insulin for glucose control HTN- Resume home bp medications Atrial fibrillation- Rate controlled, continue coumadin, check inr, coumadin to be managed by pharmacy Parkinsons disease- home medications to be resumed. It seems his disease is progressing and he is progressively being limited in his activities. Not sure if he is still following with neurology, will follow up. May need some changes in medication regime. Dysphagia- ST evaluation Weakness- marija get rehab with OT/PT DVT hep sq Diet dysphagia diet, level 2 Full code Medical - PN: Qual - VTE Deep Vein Thrombosis/Pulmonary Embolism Present on Admission: No
[2018-07-08] MEDS: ACETAMINOPHEN 1,000 MG/100 ML BOTTLE IV SCH ×2 (14:38→21:14)
[2018-07-08] MEDS: DIGOXIN 125 MCG TABLET PO SCH (14:40)
[2018-07-08] MEDS ORDERED: IOPAMIDOL 100 ML BOTTLE IV ONE (15:58)
[2018-07-08] MEDS ORDERED: 0.45 % SODIUM CHLORIDE 1,000 ML IV SCH (18:15)
--- NOTE | 2018-07-08 18:20 | Cat Scan Report ---
CLINICAL INFORMATION: To cellulitis. Evaluate for osteomyelitis COMPARISON: Wrist films 07/07/2018 TECHNIQUE: 0.625 mm helical slices were obtained through the distal one third radius and ulna through the distal metacarpals. Following reconstruction, 2.5 mm sagittal coronal axial reformatted reprocessed reviewed at bone and soft tissue windows FINDINGS: Mild diffuse osteoporosis is noted. There is a 14 mm cortical/subcortical erosion in the dorsal aspect of the distal radial epiphysis which could indicate a focus of osteomyelitis. There is overlying soft tissue swelling. There is also a 1 cm focal erosion of the dorsal capitate cortex which is likely degenerative but could be infectious. There is heavy chondrocalcinosis in the TFCC region and also calcification throughout the distal radioulnar and ulnar carpal joints with small amounts of calcification in the radiocarpal joint. Severe degeneration of the distal radial ulnar, STT and first CMC joints. Diffuse soft tissue swelling compatible cellulitis appreciated. There are no discrete fluid collections. IMPRESSION: 1. 14 mm cortical last subcortical erosion the dorsal radial epiphysis with overlying soft tissue swelling which could indicate a focus of osteomyelitis. 2. 10 mm focal cortical erosion of the dorsal capitate likely degenerative, but possibly osteomyelitis 3. Multilevel degenerative change 4. Chondrocalcinosis in the TFCC and also calcification within the distal radioulnar ulnar carpal radiocarpal joints 5. Mild diffuse soft tissue swelling compatible with cellulitis Interpreted and Authenticated by: Chalino Katz 07/08/18
[2018-07-08] MEDS ORDERED: cefTRIAXone 2 GM in DEXTROSE 5% IN WATER 50 ML IV SCH (19:00)
[2018-07-08] MEDS: SIMVASTATIN 40 MG TABLET PO SCH (21:15)
[2018-07-09] MEDS: 0.9 % SODIUM CHLORIDE 10 ML SYRINGE IV SCH ×3 (05:26→21:41)
[2018-07-09 06:03] LABS: Basophils # (Auto) 0 K/mcL (0.0-0.3); Basophils % (Auto) 0.1 % (0.0-2.0); Eosinophils # (Auto) 0 K/mcL (0.0-0.7); Eosinophils % (Auto) 0.1 % (0.0-7.0); Granulocytes % (Auto) 82.5 % (38.0-78.0); Lymphocytes # (Auto) 0.6 K/mcL (1.5-4.8); Lymphocytes % (Auto) 8.4 % (15.5-49.0); Mean Cell Volume 88.1 fL (80.0-100.0); Mean Corpuscular HGB Conc 32.7 g/dL (31.0-36.0); Mean Corpuscular Hemoglobin 28.8 pg (26.0-34.0); Monocytes # (Auto) 0.6 K/mcL (0.1-0.9); Monocytes % (Auto) 8.9 % (1.0-12.0); Platelet Count 163 K/mcL (140-440); RBC 3.76 M/mcL (4.50-5.90); Red Cell Distribution Width 14.4 % (11.5-14.5)
[2018-07-09 06:20] LABS: ALT/SGPT < 5 U/l (0-40); Albumin/Globulin Ratio 0.9 (1.0-2.3); Alkaline Phosphatase 83 U/L (39-117); Bilirubin,Direct < 0.2 mg/dL (0.0-0.3); Blood Urea Nitrogen 10 mg/dl (8-23); Gamma Glutamyl Transpeptidase 16 U/L (8-61); Uric Acid 4.2 mg/dL (2.5-8.0)
[2018-07-09] MEDS ORDERED: VANCOMYCIN PER PHARMACY IV SCH (07:30)
[2018-07-09] MEDS: HEPARIN 5,000 UNIT/ML VIAL SQ SCH ×2 (08:05→21:40)
[2018-07-09] MEDS: CARVEDILOL 3.125 MG TABLET PO SCH ×2 (08:05→16:08)
[2018-07-09] MEDS: INSULIN LISPRO 1 UNIT/0.01 ML UNIT SQ SCH ×4 (08:05→21:40)
[2018-07-09] MEDS: VANCOMYCIN 1,500 MG in 0.9 % SODIUM CHLORIDE 500 ML IV SCH (08:05)
[2018-07-09] MEDS: TAMSULOSIN 0.4 MG CAPSULE PO SCH (08:05)
[2018-07-09] MEDS: CALCIUM (OYSTER SHELL) 500 MG TABLET PO SCH (08:05)
[2018-07-09] MEDS: MULTIVIT,THER IRON,CA,FA & MIN 1 TABLET PO SCH (08:05)
[2018-07-09] MEDS: oxyCODONE HCL 5 MG TABLET PO PRN ×2 (08:06→14:57)
[2018-07-09] MEDS: cefTRIAXone 1 GM VIAL IV SCH (08:32)
[2018-07-09] MEDS: CARBIDOPA/LEVODOPA 25/100 TABLET PO SCH ×3 (08:33→21:40)
[2018-07-09] MEDS: VITAMIN D3 400 UNIT TABLET PO SCH (08:33)
[2018-07-09] MEDS: OSELTAMIVIR PHOSPHATE 75 MG CAPSULE PO SCH ×2 (08:33→21:40)
[2018-07-09] MEDS: FINASTERIDE 5 MG TABLET PO SCH (08:34)
[2018-07-09] MEDS: ACETAMINOPHEN 1,000 MG/100 ML BOTTLE IV SCH ×3 (08:57→21:41)
--- NOTE | 2018-07-09 11:32 | Internal Med Progress Note ---
Medical - PN: Subj Patient information: Note initiated : 07/09/18 at 11:29 am Service Date, if different from initiated Date: [] Patient: Hugo Yang a 87 y/o M admitted on 07/07/18 for Generalized Weakness. Chief Complaint: [] Interval history: Mr. Yang is a 87 year old M with h/o parkinsons disease, with gradually declining health, presents to the ER today with complaints of weakness going on for the last few days, was present in the ER on the sixth of this month with complaints of weakness workup was unrevealing at that time. The patient continued to remain weak, had an episode of diarrhea yesterday, and today the noticed redness and swelling on the right wrist at the base of the thumb. This region is painful erythematous and warm to touch and therefore she brought him back to the hospital for further evaluation. The patient complains about some pain in the thumb, otherwise has no complaints. He uses diapers and denies any urinary complaints. According to the he has been eating okay but has not been drinking enough fluids. She is finding it hard to take care of him at home at this time. On my history taking there was no mention about respiratory symptoms however the ED did check for influenza and influenza is positive. The patient denies any headache changes in vision, has chronic difficulty in swallowing denies any chest pain shortness of breath denies any abdominal pain nausea vomiting denies any other joint issues except for the swelling in the right hand. In the emergency room on presentation the temperature is 98.4, heart rate 91 blood pressure 164 x 73 saturating 100% on room air. Patient has WBC count of 6.9 hemoglobin 11.2 platelets 177, patient has 85% granulocytes. Chemistry shows sodium of 135 potassium 4.5 bicarbonate 25 and creatinine 0.7, uric acid is 4.9. ESR is elevated at 71, lactic acid is elevated at 2.5, urinalysis is positive leukocyte esterase RBCs and WBCs but also has some epithelial cells and mucus. RA test is negative Hand x-ray shows mild diffuse soft tissue swelling likely cellulitis, chest x- ray is interpreted as negative. Given old age, inability to manage the patient at home, cellulitis of the hand with elevated lactic acid we will admit this patient as inpatient status to the hospital. The patient will likely need more than 2 midnight stay for IV antibiotics, as well as rehab 07/08 Patient seen and examined, no acute overnight events. Patient still has significant pain in the right wrist, erythema as well as warmth at that site. Looks somewhat better compared to yesterday. Denies any acute complaints or concerns. Labs are stable Plan to get an MRI of the right wrist hand. Consider ortho consult based on results. 07/09 Patient seen and examined, was drowsy this morning had received oxycodone. Reviewed chart, noted that he has pain and swelling on the right side of the hand. This has not improved. Some concern about pain on the left hand but no evidence of infection there. 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 Dr Jeff consulted, feels likely gout or pseudogout, advised aspiration will see if radiolgoy can aspirate the joint. Pertinent ROS: drowsy - Constitutional Vitals: Vital Signs Temp Pulse Resp BP Pulse Ox 99.0 F 89 19 168/92 93 07/09/18 07:53 07/09/18 08:00 07/09/18 08:00 07/09/18 07:53 07/09/18 08:00 Period Temp Pulse Resp BP Sys/Aaron Pulse Ox Last 24 Hr 97.0 F-99.6 F 64-89 18-22 123-168/59-92 93-95 Intake and Output 07/08/18 07/09/18 07/09/18 21:59 05:59 13:59 Intake Total 120 / 120 100 / 100 Output Total Balance 118 / 118 99 / 99 Weight 157 lb Intake & Output: Intake & Output 07/08/18 07/09/18 07/09/18 21:59 05:59 13:59 Intake Total 120 / 120 100 / 100 Output Total Balance 118 / 118 99 / 99 Weight 157 lb Intake: IV 100 / 100 100 / 100 Oral 20 / 20 Output: # of times incontinent of urine Other: Meal Dinner Breakfast Percent of Meal Consumed 3 bites 10% Feeding Ability Total Assistance Total Assistance Urine Color Bright Yellow Urine Odor Normal Exam: Constitutional; Afebrile, usually cooperative when awake. Respiratory system: Air Entry equal on both sides, No crackles or wheezing, no rhonchi. CVS- Rate rhythm irregular, S1,S2 heard, no gallop, no rub. 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, Medical - PN: Obj Da - Labs CBC & Chem 7: 07/09/18 04:00 07/09/18 04:00 Labs: Abnormal Lab Results 07/09/18 07/09/18 07/09/18 04:00 04:00 04:00 RBC 3.76 L Hgb 10.8 L Hct 33.1 L Gran % 82.5 H Lymph % (Auto) 8.4 L Lymph # (Auto) 0.6 L ESR PT 30.3 H INR 2.9 H VBG Lactic Acid Creatinine 0.5 L Glucose 140 H Calcium Phosphorus 2.1 L Magnesium Albumin 3.0 L Albumin/Globulin Ratio 0.9 L Urine Protein Urine Ketones Urine Urobilinogen Ur Leukocyte Esterase Urine RBC Urine WBC Ur Squamous Epith Cells Amorphous Crystals Urine Bacteria 07/08/18 07/08/18 07/08/18 03:35 03:35 03:35 RBC 3.56 L Hgb 10.4 L Hct 31.4 L Gran % 80.3 H Lymph % (Auto) 11.0 L Lymph # (Auto) 0.8 L ESR PT 29.7 H INR 2.9 H VBG Lactic Acid Creatinine 0.6 L Glucose 129 H Calcium 8.4 L Phosphorus Magnesium 1.3 L Albumin 2.9 L Albumin/Globulin Ratio 0.9 L Urine Protein Urine Ketones Urine Urobilinogen Ur Leukocyte Esterase Urine RBC Urine WBC Ur Squamous Epith Cells Amorphous Crystals Urine Bacteria 07/07/18 07/07/18 07/07/18 16:44 16:30 16:30 RBC Hgb Hct Gran % Lymph % (Auto) Lymph # (Auto) ESR PT INR VBG Lactic Acid 2.5 H Creatinine Glucose 207 H Calcium Phosphorus Magnesium Albumin Albumin/Globulin Ratio 0.9 L Urine Protein 30 A Urine Ketones 5/tr A Urine Urobilinogen 2.0 A Ur Leukocyte Esterase 250 A Urine RBC 2 H Urine WBC 29 H Ur Squamous Epith Cells 6 H Amorphous Crystals Few A Urine Bacteria Mod A 07/07/18 16:30 RBC 3.88 L Hgb 11.2 L Hct 33.8 L Gran % 85.3 H Lymph % (Auto) 8.0 L Lymph # (Auto) 0.5 L ESR 71 H PT INR VBG Lactic Acid Creatinine Glucose Calcium Phosphorus Magnesium Albumin Albumin/Globulin Ratio Urine Protein Urine Ketones Urine Urobilinogen Ur Leukocyte Esterase Urine RBC Urine WBC Ur Squamous Epith Cells Amorphous Crystals Urine Bacteria Meds: Medications Albuterol Sulfate (Ventolin) 2.5 mg NEB Q2HP PRN PRN Reason: Shortness Of Breath Calcium Carbonate/Glycine (Oscal) 600 mg PO QDAY [facility] Last Admin: 07/09/18 08:05 Dose: 600 mg Carbidopa/Levodopa (Sinemet 25/100) 2 tab PO TID [facility] Last Admin: 07/09/18 08:33 Dose: 2 tab Carvedilol (Coreg) 3.125 mg PO BIDCC [facility] Last Admin: 07/09/18 08:05 Dose: 3.125 mg Cefepime HCl (Maxipime) 1 gm IV Q12H [facility] Clonidine HCl (Catapres) 0.1 mg PO Q4HP PRN PRN Reason: Hypertension Last Admin: 07/09/18 08:34 Dose: 0.1 mg Dextrose (Dextrose 50%) 0 ml IV UD PRN PRN Reason: Hypoglycemia Diagnostic Test (Pha) (Accu-Chek) 1 each FS ACHS [facility] Last Admin: 07/09/18 08:00 Dose: 1 each Digoxin (Lanoxin) 125 mcg PO DAILY@1200 [facility] Last Admin: 07/08/18 14:40 Dose: 125 mcg Finasteride (Proscar) 5 mg PO QDAY [facility] Last Admin: 07/09/18 08:34 Dose: 5 mg Glucose (Insta-Glucose) 15 gm PO PRN PRN PRN Reason: Hypoglycemia Heparin Sodium (Porcine) (Heparin) 5,000 unit SQ Q12 [facility] Last Admin: 07/09/18 08:05 Dose: 5,000 unit Hydromorphone HCl (Dilaudid) 0.5 mg IV Q2HP PRN PRN Reason: PAIN LEVEL > 6 Last Admin: 07/07/18 20:47 Dose: 0.5 mg Acetaminophen (Ofirmev) 1,000 mg in 100 mls @ 200 mls/hr IV TID [facility] Last Admin: 07/09/18 08:57 Dose: 200 mls/hr Vancomycin HCl 1,500 mg/ (Sodium Chloride) 500 mls @ 333.3 mls/hr IV Q24H [facility] Last Admin: 07/09/18 08:05 Dose: 333.3 mls/hr Insulin Human Lispro (Humalog) 0 unit SQ ACHS [facility]; Protocol Last Admin: 07/09/18 08:05 Dose: 2 unit Iron Carb/Multivit/[place]/Folic Acid (Multivitamin W/Minerals) 1 tab PO DAILY [facility] Last Admin: 07/09/18 08:05 Dose: 1 tab Naloxone HCl (Narcan) 0.1 mg IV Q2MIN PRN PRN Reason: Opiate Reversal Ondansetron HCl (Zofran) 4 mg IV Q6HP PRN PRN Reason: Nausea And Vomiting Oseltamivir Phosphate (Tamiflu) 75 mg PO BID [facility] Last Admin: 07/09/18 08:33 Dose: 75 mg Oxycodone HCl (Roxicodone) 5 mg PO Q4HP PRN PRN Reason: PAIN LEVEL 3-6 Last Admin: 07/09/18 08:06 Dose: 5 mg Simvastatin (Zocor) 40 mg PO QPM [facility] Last Admin: 07/08/18 21:15 Dose: 40 mg Sodium Chloride (Saline Flush) 10 ml IV Q8 [facility] Last Admin: 07/09/18 05:26 Dose: 10 ml Tamsulosin HCl (Flomax) 0.4 mg PO QDAY [facility] Last Admin: 07/09/18 08:05 Dose: 0.4 mg Vancomycin HCl (Vancomycin Per Pharmacy) 1 order IV UD [facility] Vitamin D (Vitamin D3) 800 unit PO QDAY [facility] Last Admin: 07/09/18 08:33 Dose: 800 unit Warfarin Sodium (Coumadin Per Pharmacy) 1 order PO DAILY@1400 [facility] Last Admin: 07/08/18 14:33 Dose: Not Given Medical - PN: A/P - Time Spent With Patient Total time spent is greater than 50% in coordination of care (as documented) at patient's floor/unit and/or counseling patient: - Narrative A/P Narrative: A/P Hand Cellulitis/ vs Osteomyelitis - on vanco, swithc rocephin to cefepime. Hand surgery consulted advised aspiration. will get radiolgoy to aspirate the jonit. Sepsis/ lactic acidosis- resolved Possible gout flare? Although uric acid is normal, pt location makes me wonder if gout is at play here. Will cover with colchicine for now. had stopped yesterday, but surgery feels gout still possible, continue colchicine for now. if aspiration shows crystal,s will give trial of oral steroid and d/c antibiotics. UTI- patient ua is abnormal, but pt has no symptoms, uses a daiper, will recheck ua, he should be covered by ABX at this time. Influenzae A- patient has no symptoms suggestive of influenza, but test is positive, given old age, at this time, I would start patient on tamiflu for now. Diabetes - Hold oral medications, start on SSI insulin for glucose control HTN- Resume home bp medications Atrial fibrillation- Rate controlled, continue coumadin, check inr, coumadin to be managed by pharmacy Parkinsons disease- home medications to be resumed. It seems his disease is progressing and he is progressively being limited in his activities. Not sure if he is still following with neurology, will follow up. May need some changes in medication regime. Dysphagia- ST evaluation Weakness- marija get rehab with OT/PT DVT hep sq Diet dysphagia diet, as pe ST Full code Medical - PN: Qual - VTE Deep Vein Thrombosis/Pulmonary Embolism Present on Admission: No
[2018-07-09] MEDS: DIGOXIN 125 MCG TABLET PO SCH (12:34)
[2018-07-09] MEDS: COLCHICINE 0.6 MG TABLET PO SCH ×2 (12:34→21:40)
[2018-07-09] MEDS: CEFEPIME 1 GM VIAL IV SCH (12:41)
[2018-07-09] MEDS: CELECOXIB 200 MG CAPSULE PO SCH (12:41)
[2018-07-09] MEDS ORDERED: MIDAZOLAM 2 MG/2 ML VIAL IV ONE (16:53)
[2018-07-09] MEDS ORDERED: fentaNYL 100 MCG/2 ML VIAL IV ONE (16:53)
[2018-07-09] MEDS ORDERED: IOHEXOL 180 10 ML VIAL IT ONE (17:36)
[2018-07-09] MEDS ORDERED: LIDOCAINE 1% 20 ML VIAL SQ ONE (17:36)
[2018-07-09 18:38] LABS: Appearance,Synovial Fluid CLEAR; Color,Synovial Fluid COLORLESS
--- NOTE | 2018-07-09 19:24 | XRay Report ---
CLINICAL INFORMATION: Right wrist pain and inflammation. Fluid requested for synovial fluid analysis TECHNIQUE: The patient was premedicated with 1 mg of versed and 15 mammograms of fentanyl given intravenously while blood pressure and pulse oximeter monitored. Total sedation time 17 minutes. He maintained consciousness With the patient in supine position, the skin overlying the radiocarpal joint was fluoroscopically marked, prepped and locally anesthetized with 1% lidocaine using a 25-gauge needle. A 20-gauge needle was advanced under fluoroscopic guidance into the radiocarpal joint. Less than 1 cc of fluid was aspirated. 0.5 cc of Omnipaque 180 was then injected confirming intra-articular needle tip position. Then approximately 3 cc of clear yellow synovial fluid was aspirated and sent for requested studies. IMPRESSION: Successful fluoroscopic guided aspiration the of the radiocarpal joint yielding 3 cc of clear synovial fluid. The sample sent for requested studies. No apparent complication Interpreted and Authenticated by: Chalino Katz 07/09/18
[2018-07-09] MEDS: SIMVASTATIN 40 MG TABLET PO SCH (21:40)
--- NOTE | 2018-07-09 22:51 | Consultation ---
DATE OF CONSULTATION: 07/09/2018 CHIEF COMPLAINT: Right wrist and hand pain, swelling and redness. HISTORY OF PRESENT ILLNESS: The patient is an 87-year-old, [id number], white male with a several-day history of worsening pain, redness and swelling in the back of his right wrist and hand. He denies any trauma to the wrist or hand that he can remember. His began noticing it on Saturday and with progressive worsening until Saturday when he was presented to the Emergency Department for pain, redness, swelling. At that time, he was started on IV antibiotics with again minimal improvement. Also, started on some colchicine again with minimal improvement with continued pain, loss of motion and function. He has pain with any type of motion and gripping, grasping activities with that hand. He denies any trauma to that wrist or hand that he remembers the most recent or distant past. He denies any elbow or shoulder problems. He denies any left upper extremity problems. PAST MEDICAL HISTORY: Significant for urinary tract infection, pneumonia, benign prostatic hypertrophy, chronic dysphagia, vitamin D deficiency, diabetic neuropathy, myelodysplastic syndrome, kyphosis, hypertension, hyperlipidemia, hydrocele, shingles, inguinal hernia, diabetes mellitus type 2, constipation, blepharitis, atrial fibrillation, chronic anemia, actinic keratitis, acute respiratory failure, sepsis, cellulitis, irregular heartbeat. PAST SURGICAL HISTORY: The patient is status post a colonoscopy, rotator cuff repair, lumbar surgery, hernia repair, total knee arthroplasty bilaterally, cholecystectomy and tonsillectomy. MEDICATIONS: Include: 1. Calciferol 800 units daily. 2. Tamsulosin 0.5 mg daily. 3. Calcium carbonate 600 mg daily. 4. Digoxin 125 mcg daily. 5. Glipizide 5 mg twice daily. 6. Simvastatin 40 mg daily. 7. Pioglitazone 45 mg daily. 8. Carvedilol 3.125 mg daily. 9. Finasteride 5 mg daily. 10. Metformin 500 mg twice daily. 11. Carbidopa/levodopa 25/100 mg 2 tablets 3 times daily. 12. Coumadin 2.5 mg daily. ALLERGIES: The patient has no known drug allergies. SOCIAL HISTORY: Presently, the patient denies any tobacco, alcohol use. The patient does live at home with his and is retired and is a community ambulator. REVIEW OF SYSTEMS: Presently, the patient denies any headaches, no vision changes, no nausea, vomiting, fevers or chills. He does complain of some shortness of breath. He demonstrates also some abnormal bruising, bleeding secondary to his chronic anticoagulation. PHYSICAL EXAMINATION: VITAL SIGNS: Include a pulse of 90 that is regular, respiratory rate of 22, a blood pressure of 130/70 and a temperature of 99.9 degrees. GENERAL: The patient is an 87-year-old thin white male, awake, alert and responsive, somewhat sedated from a previous wrist aspiration, but does respond to stimuli and verbal commands. SKIN: His bilateral upper extremities do not demonstrate any skin breakdown, macerations, lacerations, ulcers, or lesions. He does demonstrate some erythema and edema of the right dorsal forearm and wrist to the level of the metacarpals. There are no lesions noted. There is no fluctuance noted. There is no skin breakdown or purulence noted. EXTREMITIES: His right upper extremity demonstrates a shoulder and elbow without deformities. He has no tenderness to palpation. He has elbow flexion from 0 to 145 degrees. He has no instability with varus or valgus stressing at 0 or 30 degrees of flexion. He has a negative Tinel's at the cubital tunnel. Negative hyperflexion sign. He does demonstrate the associated edema from the distal dorsal forearm to the level of the metacarpals of the hand. With the associated erythema, there is tenderness to palpation of the dorsal wrist and hand but mostly at the base of the thumb with tenderness and crepitation. He has radial subluxation at the base of thumb metacarpal. He has some limitations with motion secondary to tenderness with wrist flexion to about 50 degrees and extension to about 50 degrees. He has ulnar deviation to 30 degrees and radial deviation to 15 degrees. He is not able to make a full composite fist. He has good capillary refill and responded to light touch. His left upper extremity, shoulder, elbow, wrist, and hand without any deformities and nontender to palpation, full range of motion and neurovascularly intact distally. IMAGING: His plain radiographs, AP, lateral, oblique of the right wrist demonstrate no evidence of acute fractures or dislocations. There is some slight periarticular erosions mostly on the dorsal distal radius and some other within the carpus. There is also evidence of a cystic formation. There is no significant displacement or instability pattern is noted. He has some soft tissue chondrosis mostly at the TFCC and some of the ligamentous structures of the carpus. He has concentric reduction at the radiocarpal and distal radioulnar joints. He has some increasing soft tissue edema dorsally. CT scan of the wrist also demonstrates some bony erosions mostly at the distal dorsal radius and somewhat minimally within the carpus. He has evidence of a small joint effusion. There is no instability pattern is noted. There is a concentric reduction within the carpus. ASSESSMENT AND PLAN: 1. The patient demonstrates a fairly significant degenerative arthritis mostly the base of the thumb at the carpometacarpal joint, which is quite symptomatic. 2. 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 RECOMMENDATIONS: 1. I would continue with the carpal tunnel splinting for comfort. 2. I would recommend an ultrasound-guided aspiration of the joint to evaluate for crystals and cell count. 3. If the patient does demonstrate evidence of purulence, we recommend an open debridement. Otherwise, recommend just observation and possible steroid injection if this is a crystal arthropathy. SRB:in Job ID: [id number] Doc ID: [id number] Tin Bray MD
[2018-07-10] MEDS: 0.9 % SODIUM CHLORIDE 10 ML SYRINGE IV SCH ×3 (05:28→23:43)
[2018-07-10 06:09] LABS: Basophils # (Auto) 0 K/mcL (0.0-0.3); Basophils % (Auto) 0.2 % (0.0-2.0); Eosinophils # (Auto) 0 K/mcL (0.0-0.7); Eosinophils % (Auto) 0.2 % (0.0-7.0); Granulocytes % (Auto) 75.5 % (38.0-78.0); Lymphocytes # (Auto) 0.6 K/mcL (1.5-4.8); Lymphocytes % (Auto) 13.6 % (15.5-49.0); Mean Cell Volume 88.4 fL (80.0-100.0); Mean Corpuscular HGB Conc 32.7 g/dL (31.0-36.0); Mean Corpuscular Hemoglobin 28.9 pg (26.0-34.0); Monocytes # (Auto) 0.4 K/mcL (0.1-0.9); Monocytes % (Auto) 10.5 % (1.0-12.0); Platelet Count 139 K/mcL (140-440); RBC 3.39 M/mcL (4.50-5.90); Red Cell Distribution Width 14.2 % (11.5-14.5)
[2018-07-10 06:38] LABS: ALT/SGPT < 5 U/l (0-40); Albumin 2.4 gm/dL (3.2-5.2); Albumin/Globulin Ratio 0.8 (1.0-2.3); Alkaline Phosphatase 68 U/L (39-117); Bilirubin,Direct < 0.2 mg/dL (0.0-0.3); Blood Urea Nitrogen 12 mg/dl (8-23); C-Reactive Protein 18.8 mg/dl (0.0-0.8); Gamma Glutamyl Transpeptidase 15 U/L (8-61)
[2018-07-10] MEDS: INSULIN LISPRO 1 UNIT/0.01 ML UNIT SQ SCH ×4 (07:46→23:42)
[2018-07-10] MEDS: CARVEDILOL 3.125 MG TABLET PO SCH ×2 (07:47→17:38)
[2018-07-10] MEDS: oxyCODONE HCL 5 MG TABLET PO PRN (07:56)
[2018-07-10 08:06] LABS: Erythrocyte Sedimentation Rate 83 mm/hr (0-15)
[2018-07-10] MEDS: CEFEPIME 1 GM VIAL IV SCH (09:29)
[2018-07-10] MEDS: VANCOMYCIN 1,500 MG in 0.9 % SODIUM CHLORIDE 500 ML IV SCH (09:29)
[2018-07-10] MEDS: FINASTERIDE 5 MG TABLET PO SCH (09:30)
[2018-07-10] MEDS: VITAMIN D3 400 UNIT TABLET PO SCH (09:30)
[2018-07-10] MEDS: CELECOXIB 200 MG CAPSULE PO SCH (09:30)
[2018-07-10] MEDS: CARBIDOPA/LEVODOPA 25/100 TABLET PO SCH ×3 (09:31→23:21)
[2018-07-10] MEDS: COLCHICINE 0.6 MG TABLET PO SCH ×2 (09:32→23:23)
[2018-07-10] MEDS: OSELTAMIVIR PHOSPHATE 75 MG CAPSULE PO SCH ×2 (09:32→23:23)
[2018-07-10] MEDS: TAMSULOSIN 0.4 MG CAPSULE PO SCH (09:32)
[2018-07-10] MEDS: MULTIVIT,THER IRON,CA,FA & MIN 1 TABLET PO SCH (09:33)
[2018-07-10] MEDS: CALCIUM (OYSTER SHELL) 500 MG TABLET PO SCH (09:33)
[2018-07-10] MEDS: ACETAMINOPHEN 1,000 MG/100 ML BOTTLE IV SCH ×3 (09:34→23:24)
[2018-07-10] MEDS: HEPARIN 5,000 UNIT/ML VIAL SQ SCH ×2 (09:34→23:37)
--- NOTE | 2018-07-10 11:32 | Internal Med Progress Note ---
Medical - PN: Subj Patient information: Note initiated : 07/10/18 at 11:29 am Service Date, if different from initiated Date: [] Patient: Hugo Yang a 87 y/o M admitted on 07/07/18 for Generalized Weakness. Chief Complaint: [] Interval history: Mr. Yang is a 87 year old M with h/o parkinsons disease, with gradually declining health, presents to the ER today with complaints of weakness going on for the last few days, was present in the ER on the sixth of this month with complaints of weakness workup was unrevealing at that time. The patient continued to remain weak, had an episode of diarrhea yesterday, and today the noticed redness and swelling on the right wrist at the base of the thumb. This region is painful erythematous and warm to touch and therefore she brought him back to the hospital for further evaluation. The patient complains about some pain in the thumb, otherwise has no complaints. He uses diapers and denies any urinary complaints. According to the he has been eating okay but has not been drinking enough fluids. She is finding it hard to take care of him at home at this time. On my history taking there was no mention about respiratory symptoms however the ED did check for influenza and influenza is positive. The patient denies any headache changes in vision, has chronic difficulty in swallowing denies any chest pain shortness of breath denies any abdominal pain nausea vomiting denies any other joint issues except for the swelling in the right hand. In the emergency room on presentation the temperature is 98.4, heart rate 91 blood pressure 164 x 73 saturating 100% on room air. Patient has WBC count of 6.9 hemoglobin 11.2 platelets 177, patient has 85% granulocytes. Chemistry shows sodium of 135 potassium 4.5 bicarbonate 25 and creatinine 0.7, uric acid is 4.9. ESR is elevated at 71, lactic acid is elevated at 2.5, urinalysis is positive leukocyte esterase RBCs and WBCs but also has some epithelial cells and mucus. RA test is negative Hand x-ray shows mild diffuse soft tissue swelling likely cellulitis, chest x- ray is interpreted as negative. Given old age, inability to manage the patient at home, cellulitis of the hand with elevated lactic acid we will admit this patient as inpatient status to the hospital. The patient will likely need more than 2 midnight stay for IV antibiotics, as well as rehab 07/08 Patient seen and examined, no acute overnight events. Patient still has significant pain in the right wrist, erythema as well as warmth at that site. Looks somewhat better compared to yesterday. Denies any acute complaints or concerns. Labs are stable Plan to get an MRI of the right wrist hand. Consider ortho consult based on results. 07/09 Patient seen and examined, was drowsy this morning had received oxycodone. Reviewed chart, noted that he has pain and swelling on the right side of the hand. This has not improved. Some concern about pain on the left hand but no evidence of infection there. 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 Dr Jeff consulted, feels likely gout or pseudogout, advised aspiration will see if radiolgoy can aspirate the joint. 07/10 Pt seen examined, appreciate ortho input plan to watch for now remains on IV abx, and colchicine neg crystals on fluid analysis. try to get split to the wrist, await cultures, but could be negative as pt was on ABX pt was drowsy this AM, but still winces when the wrist is touched. Pertinent ROS: drowsy today on my eval, s/p pain meds . - Constitutional Vitals: Vital Signs Temp Pulse Resp BP Pulse Ox 98.9 F 72 18 106/72 97 07/10/18 08:00 07/10/18 08:00 07/10/18 08:00 07/10/18 08:00 07/10/18 08:00 Period Temp Pulse Resp BP Sys/Aaron Pulse Ox Last 24 Hr 98.2 F-100.0 F 68-95 18-22 104-138/49-78 92-100 Intake and Output 07/09/18 07/10/18 07/10/18 21:59 05:59 13:59 Intake Total 100 / 100 100 / 100 160 / 160 Output Total 2 / 2 Balance 96 / 96 99 / 99 158 / 158 Weight 155 lb 8 oz 155 lb 8 oz Patient Weight 07/11/18 05:59 Weight 155 lb 8 oz Intake & Output: Intake & Output 07/09/18 07/10/18 07/10/18 21:59 05:59 13:59 Intake Total 100 / 100 100 / 100 160 / 160 Output Total 2 / 2 Balance 96 / 96 99 / 99 158 / 158 Weight 155 lb 8 oz 155 lb 8 oz Intake: IV 100 / 100 100 / 100 100 / 100 Oral 60 / 60 Output: # of times incontinent of urine Other: Meal Breakfast Percent of Meal Consumed 10% Feeding Ability Total Assistance Total Assistance Exam: Constitutional; Afebrile, cooperative, drowsy, not in distress. Eyes- No icterus, , No periorbital swelling Ears- Ext ear normal, Neck- Midline trachea, supple Respiratory system: Air Entry equal on both sides, No crackles or wheezing, no rhonchi. CVS- Rate rhythm irregular, S1,S2 heard, no gallop, no rub. 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 Medical - PN: Obj Da - Labs CBC & Chem 7: 07/10/18 03:50 07/10/18 03:50 Labs: Abnormal Lab Results 07/10/18 07/10/18 07/10/18 03:50 03:50 03:50 WBC 4.2 L RBC 3.39 L Hgb 9.8 L Hct 30.0 L Plt Count 139 L Gran % Lymph % (Auto) 13.6 L Lymph # (Auto) 0.6 L ESR 83 H PT 31.5 H INR 3.1 H VBG Lactic Acid Creatinine Glucose 110 H Calcium 8.2 L Phosphorus Magnesium C-Reactive Protein 18.8 H Total Protein 5.6 L Albumin 2.4 L Albumin/Globulin Ratio 0.8 L Urine Protein Urine Ketones Urine Urobilinogen Ur Leukocyte Esterase Urine RBC Urine WBC Ur Squamous Epith Cells Amorphous Crystals Urine Bacteria ABEL Screen 07/09/18 07/09/18 07/09/18 04:00 04:00 04:00 WBC RBC 3.76 L Hgb 10.8 L Hct 33.1 L Plt Count Gran % 82.5 H Lymph % (Auto) 8.4 L Lymph # (Auto) 0.6 L ESR PT 30.3 H INR 2.9 H VBG Lactic Acid Creatinine 0.5 L Glucose 140 H Calcium Phosphorus 2.1 L Magnesium C-Reactive Protein Total Protein Albumin 3.0 L Albumin/Globulin Ratio 0.9 L Urine Protein Urine Ketones Urine Urobilinogen Ur Leukocyte Esterase Urine RBC Urine WBC Ur Squamous Epith Cells Amorphous Crystals Urine Bacteria ABEL Screen 07/08/18 07/08/18 07/08/18 03:35 03:35 03:35 WBC RBC 3.56 L Hgb 10.4 L Hct 31.4 L Plt Count Gran % 80.3 H Lymph % (Auto) 11.0 L Lymph # (Auto) 0.8 L ESR PT 29.7 H INR 2.9 H VBG Lactic Acid Creatinine 0.6 L Glucose 129 H Calcium 8.4 L Phosphorus Magnesium 1.3 L C-Reactive Protein Total Protein Albumin 2.9 L Albumin/Globulin Ratio 0.9 L Urine Protein Urine Ketones Urine Urobilinogen Ur Leukocyte Esterase Urine RBC Urine WBC Ur Squamous Epith Cells Amorphous Crystals Urine Bacteria ABEL Screen 07/07/18 07/07/18 07/07/18 16:44 16:30 16:30 WBC RBC Hgb Hct Plt Count Gran % Lymph % (Auto) Lymph # (Auto) ESR PT INR VBG Lactic Acid 2.5 H Creatinine Glucose Calcium Phosphorus Magnesium C-Reactive Protein Total Protein Albumin Albumin/Globulin Ratio Urine Protein 30 A Urine Ketones 5/tr A Urine Urobilinogen 2.0 A Ur Leukocyte Esterase 250 A Urine RBC 2 H Urine WBC 29 H Ur Squamous Epith Cells 6 H Amorphous Crystals Few A Urine Bacteria Mod A ABEL Screen Pos 1:80 or greater A 07/07/18 07/07/18 16:30 16:30 WBC RBC 3.88 L Hgb 11.2 L Hct 33.8 L Plt Count Gran % 85.3 H Lymph % (Auto) 8.0 L Lymph # (Auto) 0.5 L ESR 71 H PT INR VBG Lactic Acid Creatinine Glucose 207 H Calcium Phosphorus Magnesium C-Reactive Protein Total Protein Albumin Albumin/Globulin Ratio 0.9 L Urine Protein Urine Ketones Urine Urobilinogen Ur Leukocyte Esterase Urine RBC Urine WBC Ur Squamous Epith Cells Amorphous Crystals Urine Bacteria ABEL Screen Meds: Medications Albuterol Sulfate (Ventolin) 2.5 mg NEB Q2HP PRN PRN Reason: Shortness Of Breath Calcium Carbonate/Glycine (Oscal) 600 mg PO QDAY [facility] Last Admin: 07/10/18 09:33 Dose: 600 mg Carbidopa/Levodopa (Sinemet 25/100) 2 tab PO TID [facility] Last Admin: 07/10/18 09:31 Dose: 2 tab Carvedilol (Coreg) 3.125 mg PO BIDCC [facility] Last Admin: 07/10/18 07:47 Dose: 3.125 mg Cefepime HCl (Maxipime) 1 gm IV Q12H [facility] Last Admin: 07/10/18 09:29 Dose: 1 gm Celecoxib (Celebrex) 200 mg PO DAILY [facility] Last Admin: 07/10/18 09:30 Dose: 200 mg Clonidine HCl (Catapres) 0.1 mg PO Q4HP PRN PRN Reason: Hypertension Last Admin: 07/09/18 08:34 Dose: 0.1 mg Colchicine (Colcrys) 0.6 mg PO BID [facility] Last Admin: 07/10/18 09:32 Dose: 0.6 mg Dextrose (Dextrose 50%) 0 ml IV UD PRN PRN Reason: Hypoglycemia Diagnostic Test (Pha) (Accu-Chek) 1 each FS ACHS [facility] Last Admin: 07/10/18 07:46 Dose: 1 each Digoxin (Lanoxin) 125 mcg PO DAILY@1200 [facility] Last Admin: 07/09/18 12:34 Dose: 125 mcg Finasteride (Proscar) 5 mg PO QDAY [facility] Last Admin: 07/10/18 09:30 Dose: 5 mg Glucose (Insta-Glucose) 15 gm PO PRN PRN PRN Reason: Hypoglycemia Heparin Sodium (Porcine) (Heparin) 5,000 unit SQ Q12 [facility] Last Admin: 07/10/18 09:34 Dose: 5,000 unit Hydromorphone HCl (Dilaudid) 0.5 mg IV Q2HP PRN PRN Reason: PAIN LEVEL > 6 Last Admin: 07/07/18 20:47 Dose: 0.5 mg Acetaminophen (Ofirmev) 1,000 mg in 100 mls @ 200 mls/hr IV TID [facility] Last Infusion: 07/10/18 10:05 Dose: Infused Vancomycin HCl 1,500 mg/ (Sodium Chloride) 500 mls @ 333.3 mls/hr IV Q24H [facility] Last Admin: 07/10/18 09:29 Dose: 333 mls/hr Insulin Human Lispro (Humalog) 0 unit SQ ACHS [facility]; Protocol Last Admin: 07/10/18 07:46 Dose: Not Given Iron Carb/Multivit/[place]/Folic Acid (Multivitamin W/Minerals) 1 tab PO DAILY [facility] Last Admin: 07/10/18 09:33 Dose: 1 tab Naloxone HCl (Narcan) 0.1 mg IV Q2MIN PRN PRN Reason: Opiate Reversal Ondansetron HCl (Zofran) 4 mg IV Q6HP PRN PRN Reason: Nausea And Vomiting Oseltamivir Phosphate (Tamiflu) 75 mg PO BID [facility] Last Admin: 07/10/18 09:32 Dose: 75 mg Oxycodone HCl (Roxicodone) 5 mg PO Q4HP PRN PRN Reason: PAIN LEVEL 3-6 Last Admin: 07/10/18 07:56 Dose: 5 mg Simvastatin (Zocor) 40 mg PO QPM [facility] Last Admin: 07/09/18 21:40 Dose: 40 mg Sodium Chloride (Saline Flush) 10 ml IV Q8 [facility] Last Admin: 07/10/18 05:28 Dose: 10 ml Tamsulosin HCl (Flomax) 0.4 mg PO QDAY [facility] Last Admin: 07/10/18 09:32 Dose: 0.4 mg Vancomycin HCl (Vancomycin Per Pharmacy) 1 order IV UD [facility] Vitamin D (Vitamin D3) 800 unit PO QDAY [facility] Last Admin: 07/10/18 09:30 Dose: 800 unit Warfarin Sodium (Coumadin Per Pharmacy) 1 order PO DAILY@1400 [facility] Last Admin: 07/09/18 12:29 Dose: Not Given Medical - PN: A/P - Time Spent With Patient Total time spent is greater than 50% in coordination of care (as documented) at patient's floor/unit and/or counseling patient: - Narrative A/P Narrative: A/P Hand Cellulitis/ vs Osteomyelitis - on vanco, and cefepime still painful, to monitor. Dr Bray following. ESR trending up Sepsis/ lactic acidosis- resolved Possible gout flare? Although uric acid is normal, could be gout/pseudogout, crystals are negative though, not responding much to colchine, will continue same for now. UTI- patient ua is abnormal, but pt has no symptoms, uses a daiper, will recheck ua, he should be covered by ABX at this time. cultres are neg growth so far Influenzae A- patient has no symptoms suggestive of influenza, but test is positive, given old age, at this time, I would start patient on tamiflu for now. day 4/5 today Diabetes - Hold oral medications, start on SSI insulin for glucose control HTN- Resume home bp medications Atrial fibrillation- Rate controlled, continue coumadin, check inr, coumadin to be managed by pharmacy Parkinsons disease- home medications to be resumed. It seems his disease is progressing and he is progressively being limited in his activities. Not sure if he is still following with neurology, will follow up. May need some changes in medication regime. Dysphagia- ST evaluation Weakness- marija get rehab with OT/PT DVT hep sq Diet dysphagia diet, as per ST Full code Medical - PN: Qual - VTE Deep Vein Thrombosis/Pulmonary Embolism Present on Admission: No
[2018-07-10] MEDS: DIGOXIN 125 MCG TABLET PO SCH (11:55)
--- NOTE | 2018-07-10 18:18 | Orthopedic Progress Note ---
Subjective Patient information: Note initiated : 07/10/18 at 6:14 pm Service Date, if different from initiated Date: [] Patient: Hugo Yang 87 y/o M admitted on 07/07/18 for Generalized Weakness. Chief Complaint: [] Principal diagnosis: Right wrist arthrosis with acute inflammation Interval history: Patient awake and alert, responsive with minimal pain. Taking po well Objective Vital signs: Vital Signs Temp Pulse Resp BP Pulse Ox 07/10/18 15:53 98.6 F 70 20 108/61 96 07/10/18 12:00 99.0 F 67 22 102/51 94 07/10/18 08:00 98.9 F 72 18 106/72 97 07/10/18 04:00 98.5 F 68 18 138/78 98 07/10/18 00:00 98.8 F 68 18 118/68 96 07/09/18 20:00 98.2 F 69 18 104/49 99 Intake and Output 07/10/18 07/10/18 07/10/18 05:59 13:59 21:59 Intake Total 100 / 100 710 / 710 100 / 100 Output Total Balance 99 / 99 706 / 706 99 / 99 Intake: IV 100 / 100 600 / 600 100 / 100 Vancomycin 1,500 mg In Sodium 500 / 500 Chloride 0.9% 500 ml @ 333.3 mls/hr IV Q24H [facility] Rx#: [id number] Oral 110 / 110 Output: # of times incontinent of urine Other: Meal Lunch Percent of Meal Consumed 50% Feeding Ability Total Assistance Weight 155 lb 8 oz Patient Weight 07/11/18 05:59 Weight 155 lb 8 oz Intake & Output: Intake & Output 07/10/18 07/10/18 07/10/18 05:59 13:59 21:59 Intake Total 100 / 100 710 / 710 100 / 100 Output Total Balance 99 / 99 706 / 706 99 / 99 Weight 155 lb 8 oz Intake: IV 100 / 100 600 / 600 100 / 100 Vancomycin 1,500 mg In Sodium 500 / 500 Chloride 0.9% 500 ml @ 333.3 mls/hr IV Q24H [facility] Rx#: [id number] Oral 110 / 110 Output: # of times incontinent of urine Other: Meal Lunch Percent of Meal Consumed 50% Feeding Ability Total Assistance Weight bearing status: full Neurological exam IM: Yes neurovascular intact Extremities exam IM: Yes joint swelling, Yes normal capillary refill, Yes neurovascular intact Additional Comments: Right wrist and dorsal hand with some mild edema and minimal erythema. Mild TTP of dorsal wrist and thumb CMC joint. Able to make a fist. - Labs CBC & BMP: 07/10/18 03:50 07/10/18 03:50 Labs: Orthopedic Labs 07/10/18 07/09/18 07/08/18 03:50 04:00 03:35 PT 31.5 H 30.3 H 29.7 H INR 3.1 H 2.9 H 2.9 H 07/10/18 07/09/18 07/08/18 03:50 04:00 03:35 Hgb 9.8 L 10.8 L 10.4 L Hct 30.0 L 33.1 L 31.4 L 07/07/18 16:30 Hgb 11.2 L Hct 33.8 L Assessment and Plan - Narrative A/P Narrative: Assessment: 1. Right wrist and hand arthrosis 2. Right wrist with acute inflammation, improving Plan: 1. Continue bracing 2. D/C antibiotics 3. Follow up with Dr. Bray in 1-2 weeks for revaluation and possible steroid injection
[2018-07-10] MEDS: SIMVASTATIN 40 MG TABLET PO SCH (23:23)
[2018-07-11 05:47] LABS: Basophils # (Auto) 0 K/mcL (0.0-0.3); Basophils % (Auto) 0.1 % (0.0-2.0); Eosinophils # (Auto) 0 K/mcL (0.0-0.7); Eosinophils % (Auto) 0.8 % (0.0-7.0); Lymphocytes # (Auto) 0.7 K/mcL (1.5-4.8); Lymphocytes % (Auto) 13.9 % (15.5-49.0); Mean Cell Volume 87.9 fL (80.0-100.0); Mean Corpuscular HGB Conc 33.3 g/dL (31.0-36.0); Mean Corpuscular Hemoglobin 29.2 pg (26.0-34.0); Monocytes # (Auto) 0.4 K/mcL (0.1-0.9); Monocytes % (Auto) 9.2 % (1.0-12.0); Platelet Count 160 K/mcL (140-440); RBC 3.36 M/mcL (4.50-5.90); Red Cell Distribution Width 13.9 % (11.5-14.5)
[2018-07-11 06:05] LABS: ALT/SGPT < 5 U/l (0-40); Albumin 2.6 gm/dL (3.2-5.2); Albumin/Globulin Ratio 0.9 (1.0-2.3); Alkaline Phosphatase 78 U/L (39-117); Bilirubin,Direct < 0.2 mg/dL (0.0-0.3); Blood Urea Nitrogen 14 mg/dl (8-23); Gamma Glutamyl Transpeptidase 15 U/L (8-61); Uric Acid 5.3 mg/dL (2.5-8.0)
[2018-07-11] MEDS: 0.9 % SODIUM CHLORIDE 10 ML SYRINGE IV SCH ×3 (07:01→22:58)
[2018-07-11] MEDS: CALCIUM (OYSTER SHELL) 500 MG TABLET PO SCH (08:16)
[2018-07-11] MEDS: CELECOXIB 200 MG CAPSULE PO SCH (08:16)
[2018-07-11] MEDS: CARBIDOPA/LEVODOPA 25/100 TABLET PO SCH ×3 (08:17→22:50)
[2018-07-11] MEDS: MULTIVIT,THER IRON,CA,FA & MIN 1 TABLET PO SCH (08:17)
[2018-07-11] MEDS: VITAMIN D3 400 UNIT TABLET PO SCH (08:17)
[2018-07-11] MEDS: predniSONE 20 MG TABLET PO SCH (08:18)
[2018-07-11] MEDS: COLCHICINE 0.6 MG TABLET PO SCH (08:18)
[2018-07-11] MEDS: FINASTERIDE 5 MG TABLET PO SCH (08:18)
[2018-07-11] MEDS: OSELTAMIVIR PHOSPHATE 75 MG CAPSULE PO SCH ×2 (08:18→22:51)
[2018-07-11] MEDS: CARVEDILOL 3.125 MG TABLET PO SCH ×2 (08:19→17:20)
[2018-07-11] MEDS: INSULIN LISPRO 1 UNIT/0.01 ML UNIT SQ SCH ×4 (08:19→22:48)
[2018-07-11] MEDS: HEPARIN 5,000 UNIT/ML VIAL SQ SCH (08:19)
[2018-07-11] MEDS: TAMSULOSIN 0.4 MG CAPSULE PO SCH (08:19)
[2018-07-11] MEDS: cefTRIAXone 1 GM VIAL IV SCH ×2 (08:20→09:38)
[2018-07-11] MEDS: ACETAMINOPHEN 1,000 MG/100 ML BOTTLE IV SCH ×4 (08:21→22:58)
--- NOTE | 2018-07-11 12:00 | Internal Med Progress Note ---
Medical - PN: Subj Patient information: Note initiated : 07/11/18 at 11:56 am Service Date, if different from initiated Date: [] Patient: Hugo Yang a 87 y/o M admitted on 07/07/18 for Generalized Weakness. Chief Complaint: [] Interval history: Mr. Yang is a 87 year old M with h/o parkinsons disease, with gradually declining health, presents to the ER today with complaints of weakness going on for the last few days, was present in the ER on the sixth of this month with complaints of weakness workup was unrevealing at that time. The patient continued to remain weak, had an episode of diarrhea yesterday, and today the noticed redness and swelling on the right wrist at the base of the thumb. This region is painful erythematous and warm to touch and therefore she brought him back to the hospital for further evaluation. The patient complains about some pain in the thumb, otherwise has no complaints. He uses diapers and denies any urinary complaints. According to the he has been eating okay but has not been drinking enough fluids. She is finding it hard to take care of him at home at this time. On my history taking there was no mention about respiratory symptoms however the ED did check for influenza and influenza is positive. The patient denies any headache changes in vision, has chronic difficulty in swallowing denies any chest pain shortness of breath denies any abdominal pain nausea vomiting denies any other joint issues except for the swelling in the right hand. In the emergency room on presentation the temperature is 98.4, heart rate 91 blood pressure 164 x 73 saturating 100% on room air. Patient has WBC count of 6.9 hemoglobin 11.2 platelets 177, patient has 85% granulocytes. Chemistry shows sodium of 135 potassium 4.5 bicarbonate 25 and creatinine 0.7, uric acid is 4.9. ESR is elevated at 71, lactic acid is elevated at 2.5, urinalysis is positive leukocyte esterase RBCs and WBCs but also has some epithelial cells and mucus. RA test is negative Hand x-ray shows mild diffuse soft tissue swelling likely cellulitis, chest x- ray is interpreted as negative. Given old age, inability to manage the patient at home, cellulitis of the hand with elevated lactic acid we will admit this patient as inpatient status to the hospital. The patient will likely need more than 2 midnight stay for IV antibiotics, as well as rehab 07/08 Patient seen and examined, no acute overnight events. Patient still has significant pain in the right wrist, erythema as well as warmth at that site. Looks somewhat better compared to yesterday. Denies any acute complaints or concerns. Labs are stable Plan to get an MRI of the right wrist hand. Consider ortho consult based on results. 07/09 Patient seen and examined, was drowsy this morning had received oxycodone. Reviewed chart, noted that he has pain and swelling on the right side of the hand. This has not improved. Some concern about pain on the left hand but no evidence of infection there. 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 Dr Jeff consulted, feels likely gout or pseudogout, advised aspiration will see if radiolgoy can aspirate the joint. 07/10 Pt seen examined, appreciate ortho input plan to watch for now remains on IV abx, and colchicine neg crystals on fluid analysis. try to get split to the wrist, await cultures, but could be negative as pt was on ABX pt was drowsy this AM, but still winces when the wrist is touched. 07/11 Patient seen examined, this AM was looking better, no complaints hand in splint not as painful appreciate hand consult, no suspicion for infection d/c antibitics for osteomyelitis Patient to be started on steroids, stable for D/C but SNF can only take him tomorrow. Pertinent ROS: Denies headache, dizziness Denies chest pain, palpitations Denies cough or shortness of breath Denies abdominal pain, nausea or vomiting. - Constitutional Vitals: Vital Signs Temp Pulse Resp BP Pulse Ox 97.8 F 81 18 121/72 92 07/11/18 10:57 07/11/18 04:00 07/11/18 10:57 07/11/18 10:57 07/11/18 10:57 Period Temp Pulse Resp BP Sys/Aaron Pulse Ox Last 24 Hr 97 F-99.0 F 67-88 16-22 102-150/51-80 90-96 Intake and Output 07/10/18 07/11/18 07/11/18 21:59 05:59 13:59 Intake Total 100 / 100 250 / 250 Output Total 3 / Balance 99 / 99 247 / 247 Weight 157 lb Intake & Output: Intake & Output 07/10/18 07/11/18 07/11/18 21:59 05:59 13:59 Intake Total 100 / 100 250 / 250 Output Total Balance 99 / 99 247 / 247 Weight 157 lb Intake: IV 100 / 100 Oral 250 / 250 Output: # of times incontinent of urine Exam: Constitutional; Afebrile, cooperative, alert, not in distress. thin frail old man Respiratory system: Air Entry equal on both sides, No crackles or wheezing, no rhonchi. CVS- Rate rhythm irregular, S1,S2 heard, no gallop, no rub. 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 Medical - PN: Obj Da - Labs CBC & Chem 7: 07/11/18 04:30 07/11/18 04:30 Labs: Abnormal Lab Results 07/11/18 07/11/18 07/11/18 04:30 04:30 04:30 WBC RBC 3.36 L Hgb 9.8 L Hct 29.5 L Plt Count Gran % Lymph % (Auto) 13.9 L Lymph # (Auto) 0.7 L ESR PT 26.2 H INR 2.4 H Creatinine 0.6 L Glucose 141 H Calcium 8.1 L Phosphorus 1.9 L C-Reactive Protein Total Protein 5.6 L Albumin 2.6 L Albumin/Globulin Ratio 0.9 L ABEL Screen 07/10/18 07/10/18 07/10/18 03:50 03:50 03:50 WBC 4.2 L RBC 3.39 L Hgb 9.8 L Hct 30.0 L Plt Count 139 L Gran % Lymph % (Auto) 13.6 L Lymph # (Auto) 0.6 L ESR 83 H PT 31.5 H INR 3.1 H Creatinine Glucose 110 H Calcium 8.2 L Phosphorus C-Reactive Protein 18.8 H Total Protein 5.6 L Albumin 2.4 L Albumin/Globulin Ratio 0.8 L ABEL Screen 07/09/18 07/09/18 07/09/18 04:00 04:00 04:00 WBC RBC 3.76 L Hgb 10.8 L Hct 33.1 L Plt Count Gran % 82.5 H Lymph % (Auto) 8.4 L Lymph # (Auto) 0.6 L ESR PT 30.3 H INR 2.9 H Creatinine 0.5 L Glucose 140 H Calcium Phosphorus 2.1 L C-Reactive Protein Total Protein Albumin 3.0 L Albumin/Globulin Ratio 0.9 L ABEL Screen 07/07/18 16:30 WBC RBC Hgb Hct Plt Count Gran % Lymph % (Auto) Lymph # (Auto) ESR PT INR Creatinine Glucose Calcium Phosphorus C-Reactive Protein Total Protein Albumin Albumin/Globulin Ratio ABEL Screen Pos 1:80 or greater A Meds: Medications Albuterol Sulfate (Ventolin) 2.5 mg NEB Q2HP PRN PRN Reason: Shortness Of Breath Calcium Carbonate/Glycine (Oscal) 600 mg PO QDAY [facility] Last Admin: 07/11/18 08:16 Dose: 600 mg Carbidopa/Levodopa (Sinemet 25/100) 2 tab PO TID [facility] Last Admin: 07/11/18 08:17 Dose: 2 tab Carvedilol (Coreg) 3.125 mg PO BIDCC [facility] Last Admin: 07/11/18 08:19 Dose: 3.125 mg Ceftriaxone Sodium (Rocephin) 1 gm IV Q24H [facility] Last Admin: 07/11/18 09:38 Dose: 1 gm Celecoxib (Celebrex) 200 mg PO DAILY [facility] Last Admin: 07/11/18 08:16 Dose: 200 mg Clonidine HCl (Catapres) 0.1 mg PO Q4HP PRN PRN Reason: Hypertension Last Admin: 07/09/18 08:34 Dose: 0.1 mg Colchicine (Colcrys) 0.6 mg PO BID [facility] Last Admin: 07/11/18 08:18 Dose: 0.6 mg Dextrose (Dextrose 50%) 0 ml IV UD PRN PRN Reason: Hypoglycemia Diagnostic Test (Pha) (Accu-Chek) 1 each FS ACHS [facility] Last Admin: 07/11/18 08:19 Dose: 1 each Digoxin (Lanoxin) 125 mcg PO DAILY@1200 [facility] Last Admin: 07/10/18 11:55 Dose: 125 mcg Finasteride (Proscar) 5 mg PO QDAY [facility] Last Admin: 07/11/18 08:18 Dose: 5 mg Glucose (Insta-Glucose) 15 gm PO PRN PRN PRN Reason: Hypoglycemia Hydromorphone HCl (Dilaudid) 0.5 mg IV Q2HP PRN PRN Reason: PAIN LEVEL > 6 Last Admin: 07/07/18 20:47 Dose: 0.5 mg Acetaminophen (Ofirmev) 1,000 mg in 100 mls @ 200 mls/hr IV TID [facility] Last Admin: 07/11/18 08:21 Dose: Not Given Insulin Human Lispro (Humalog) 0 unit SQ ACHS [facility]; Protocol Last Admin: 07/11/18 08:19 Dose: Not Given Iron Carb/Multivit/[place]/Folic Acid (Multivitamin W/Minerals) 1 tab PO DAILY [facility] Last Admin: 07/11/18 08:17 Dose: 1 tab Naloxone HCl (Narcan) 0.1 mg IV Q2MIN PRN PRN Reason: Opiate Reversal Ondansetron HCl (Zofran) 4 mg IV Q6HP PRN PRN Reason: Nausea And Vomiting Oseltamivir Phosphate (Tamiflu) 75 mg PO BID [facility] Last Admin: 07/11/18 08:18 Dose: 75 mg Oxycodone HCl (Roxicodone) 5 mg PO Q4HP PRN PRN Reason: PAIN LEVEL 3-6 Last Admin: 07/10/18 07:56 Dose: 5 mg Prednisone (Prednisone) 20 mg PO QAC [facility] Last Admin: 07/11/18 08:18 Dose: 20 mg Simvastatin (Zocor) 40 mg PO QPM [facility] Last Admin: 07/10/18 23:23 Dose: 40 mg Sodium Chloride (Saline Flush) 10 ml IV Q8 [facility] Last Admin: 07/11/18 07:01 Dose: Not Given Tamsulosin HCl (Flomax) 0.4 mg PO QDAY [facility] Last Admin: 07/11/18 08:19 Dose: 0.4 mg Vitamin D (Vitamin D3) 800 unit PO QDAY [facility] Last Admin: 07/11/18 08:17 Dose: 800 unit Warfarin Sodium (Coumadin Per Pharmacy) 1 order PO DAILY@1400 [facility] Last Admin: 07/10/18 13:34 Dose: Not Given Warfarin Sodium (Coumadin) 2.5 mg PO ONCE@1400 ONE Stop: 07/11/18 14:01 Medical - PN: A/P - Time Spent With Patient Total time spent is greater than 50% in coordination of care (as documented) at patient's floor/unit and/or counseling patient: - Narrative A/P Narrative: A/P Hand Cellulitis/ vs Osteomyelitis - ooff abx per ortho, no e/o infection, as per ortho likely to be inflammatory arthritis. He will follow up with Dr Bray in 2 weeks. Sepsis/ lactic acidosis- resolved Possible gout flare or Pseudogout flare: Trial of po prednisone 20mg x 1 week UTI- patient ua is abnormal, but pt has no symptoms, uses a daiper, neg growth, total of 5 days of abx planned. Influenzae A- patient has no symptoms suggestive of influenza, but test is positive, given old age, at this time, I would start patient on tamiflu for now. day 11/30 today Diabetes - Hold oral medications, start on SSI insulin for glucose control HTN- Resume home bp medications Atrial fibrillation- Rate controlled, continue Coumadin, check inr, coumadin to be managed by pharmacy Parkinson disease- home medications to be resumed. It seems his disease is progressing and he is progressively being limited in his activities. Not sure if he is still following with neurology, will follow up. May need some changes in medication regime. Dysphagia- ST evaluation Weakness- marija get rehab with OT/PT DVT hep sq Diet dysphagia diet, as per ST Full code Anticipate d/c to SNF in AM Medical - PN: Qual - VTE Deep Vein Thrombosis/Pulmonary Embolism Present on Admission: No
[2018-07-11] MEDS: DIGOXIN 125 MCG TABLET PO SCH (12:18)
[2018-07-11] MEDS ORDERED: WARFARIN 2.5 MG TABLET PO ONE (14:00)
[2018-07-11] MEDS: NYSTATIN 500,000 UNITS/5 ML ORAL.SUSP SSW SCH ×3 (14:44→22:57)
[2018-07-11] MEDS: SIMVASTATIN 40 MG TABLET PO SCH (22:50)
[2018-07-12] MEDS: 0.9 % SODIUM CHLORIDE 10 ML SYRINGE IV SCH (05:30)
[2018-07-12 06:10] LABS: Basophils # (Auto) 0 K/mcL (0.0-0.3); Basophils % (Auto) 0.3 % (0.0-2.0); Eosinophils # (Auto) 0 K/mcL (0.0-0.7); Eosinophils % (Auto) 0.1 % (0.0-7.0); Granulocytes % (Auto) 74.4 % (38.0-78.0); Lymphocytes # (Auto) 0.6 K/mcL (1.5-4.8); Lymphocytes % (Auto) 14.6 % (15.5-49.0); Mean Cell Volume 87.6 fL (80.0-100.0); Mean Corpuscular HGB Conc 33.3 g/dL (31.0-36.0); Mean Corpuscular Hemoglobin 29.2 pg (26.0-34.0); Monocytes # (Auto) 0.4 K/mcL (0.1-0.9); Monocytes % (Auto) 10.6 % (1.0-12.0); Platelet Count 177 K/mcL (140-440); RBC 3.32 M/mcL (4.50-5.90)
[2018-07-12 06:36] LABS: ALT/SGPT 13 U/l (0-40); Albumin 2.5 gm/dL (3.2-5.2); Albumin/Globulin Ratio 0.7 (1.0-2.3); Alkaline Phosphatase 100 U/L (39-117); Bilirubin,Direct < 0.2 mg/dL (0.0-0.3); Blood Urea Nitrogen 11 mg/dl (8-23); Gamma Glutamyl Transpeptidase 28 U/L (8-61); Uric Acid 5.1 mg/dL (2.5-8.0)
[2018-07-12] MEDS: FINASTERIDE 5 MG TABLET PO SCH (08:36)
[2018-07-12] MEDS: CARBIDOPA/LEVODOPA 25/100 TABLET PO SCH (08:36)
[2018-07-12] MEDS: VITAMIN D3 400 UNIT TABLET PO SCH (08:36)
[2018-07-12] MEDS: INSULIN LISPRO 1 UNIT/0.01 ML UNIT SQ SCH (08:36)
[2018-07-12] MEDS: TAMSULOSIN 0.4 MG CAPSULE PO SCH (08:37)
[2018-07-12] MEDS: CELECOXIB 200 MG CAPSULE PO SCH (08:37)
[2018-07-12] MEDS: CARVEDILOL 3.125 MG TABLET PO SCH (08:37)
[2018-07-12] MEDS: OSELTAMIVIR PHOSPHATE 75 MG CAPSULE PO SCH (08:37)
[2018-07-12] MEDS: CALCIUM (OYSTER SHELL) 500 MG TABLET PO SCH (08:37)
[2018-07-12] MEDS: predniSONE 20 MG TABLET PO SCH (08:37)
[2018-07-12] MEDS: MULTIVIT,THER IRON,CA,FA & MIN 1 TABLET PO SCH (08:37)
[2018-07-12] MEDS: NYSTATIN 500,000 UNITS/5 ML ORAL.SUSP SSW SCH (08:38)
[2018-07-12] MEDS: ACETAMINOPHEN 1,000 MG/100 ML BOTTLE IV SCH (08:38)
--- NOTE | 2018-07-12 08:46 | Discharge Summary ---
Medical - DS: Prov Patient information: Note initiated : 07/12/18 at 8:43 am Service Date, if different from initiated Date: [] Patient: Hugo Yang 87 y/o M admitted on 07/07/18 for Generalized Weakness. Chief Complaint: [] Date of admission: 07/07/18 19:37 Discharge date: 07/12/18 Primary care physician: Benji Lira Consults: 07/07/18 Consult to Physician [CONS] Stat Comment: Consulting Provider: Anna Loyd Reason For Exam: Physician to Consult 07/09/18 11:37 Consult to Physician [CONS] Routine Comment: Consulting Provider: Tin Mcintosh Reason For Exam: Physician to Consult Discharging clinician: Anna Loyd Medical - DS: Meds - Discharge Medications Prescriptions: Neutra Phos 1 packet PO BID #10 packet oxyCODONE HCL [Roxicodone] 5 mg PO Q4HP PRN #20 tab PRN Reason: Severe Pain predniSONE [Prednisone] 20 mg PO QAC #6 tab Active and Home Medications: Home Medications cholecalciferol (vitamin D3) 400 unit capsule 800 unit PO QDAY cap 01/25/17 [ History Confirmed 07/07/18 Last Taken Unknown] tamsulosin 0.4 mg capsule 0.4 mg PO QDAY #90 cap 12/06/17 [Rx Confirmed Last Taken Unknown] calcium carbonate 600 mg calcium (1,500 mg) tablet 600 mg PO QDAY tab 12/19/17 [History Confirmed 07/07/18 Last Taken Unknown] digoxin 125 mcg tablet 125 mcg PO QDAY #90 tab 01/30/18 [Rx Confirmed 07/07/18 Last Taken Unknown] glipizide 5 mg tablet 5 mg PO BID #180 tab 01/30/18 [Rx Confirmed 07/07/18 Last Taken Unknown] simvastatin 40 mg tablet 40 mg PO QPM #90 tab 03/11/18 [Rx Confirmed 07/07/18 Last Taken Unknown] pioglitazone 45 mg tablet 45 mg PO QDAY #90 tab 03/18/18 [Rx Confirmed 07/07/18 Last Taken Unknown] carvedilol 3.125 mg tablet 3.125 mg PO BID #180 tab 04/10/18 [Rx Confirmed 07/07 Last Taken Unknown] finasteride 5 mg tablet 5 mg PO QDAY #90 tab 04/10/18 [Rx Confirmed 07/07/18 Last Taken Unknown] metformin 500 mg tablet 500 mg PO BID #180 tab 06/10/18 [Rx Confirmed 07/07/18 Last Taken Unknown] Carbidopa/Levodopa [Carbidopa-Levodopa 25-100 Tab] 2 each PO TID 07/07/18 [ History Confirmed 07/07/18 Last Taken Unknown] Multivit-Min/FA/Lycopen/Lutein [Centrum Silver Tablet] 1 tab PO DAILY 07/07/18 [ History Confirmed 07/07/18 Last Taken Unknown] Warfarin Sodium [Jantoven] 2.5 mg PO DAILY 07/07/18 [History Confirmed 07/07/18 Last Taken Unknown] Medical - DS: Hosp Hospital course: Mr. Yang is a 87 year old M with h/o parkinsons disease, with gradually declining health, presents to the ER with complaints of weakness going on for the last few days, was present in the ER on the sixth of this month with complaints of weakness workup was unrevealing at that time. The patient continued to remain weak, had an episode of diarrhea yesterday, and today the noticed redness and swelling on the right wrist at the base of the thumb. This region is painful erythematous and warm to touch and therefore she brought him back to the hospital for further evaluation. The patient complains about some pain in the thumb, otherwise has no complaints. He uses diapers and denies any urinary complaints. According to the he has been eating okay but has not been drinking enough fluids. She is finding it hard to take care of him at home at this time. On my history taking there was no mention about respiratory symptoms however the ED did check for influenza and influenza is positive. The patient denies any headache changes in vision, has chronic difficulty in swallowing denies any chest pain shortness of breath denies any abdominal pain nausea vomiting denies any other joint issues except for the swelling in the right hand. In the emergency room on presentation the temperature is 98.4, heart rate 91 blood pressure 164 x 73 saturating 100% on room air. Patient has WBC count of 6.9 hemoglobin 11.2 platelets 177, patient has 85% granulocytes. Chemistry shows sodium of 135 potassium 4.5 bicarbonate 25 and creatinine 0.7, uric acid is 4.9. ESR is elevated at 71, lactic acid is elevated at 2.5, urinalysis is positive leukocyte esterase RBCs and WBCs but also has some epithelial cells and mucus. RA test is negative Hand x-ray shows mild diffuse soft tissue swelling likely cellulitis, chest x- ray is interpreted as negative. Given old age, inability to manage the patient at home, cellulitis of the hand with elevated lactic acid we will admit this patient as inpatient status to the hospital. The patient will likely need more than 2 midnight stay for IV antibiotics, as well as rehab Hand swelling and pain- Initially concern for infection vs gout, ortho/ Dr mcintosh consulted, noted that unlikely to be infection, mostly gout/pseudogout, he reviewed the CT and advised not to treat with ABX, cultures from wrist fluid is neg. Patient will be discharged with po prednisone 20mg x 1 week to see how he does, he will follow up with ortho as outpatient in 2 weeks. UTI- UA noted to be suggestive of UTI, treated with IV antibiotics for total of 5 days, pt has no symptoms, at the time of discharge labs back to baseline Influenza- Was screened for same in Er, swab positive, pt did not have any symptoms to suggest a respiratory infection, nonethe less given his age and other comorbidities, we treated him with 5 days of tamiflu, he has completed the treatment at the time of discharge The rest of the st ay in the hospital was uneventful, pts at this time is unable to care for him at home and pt will be transferred to SNF, he will go home once pt is more strong. Pt is very weak and debilitated, and it is not possible for the to transport the patient to SNF, pt will be discharged via ambulance. Discharge diagnosis: Hand pain/ Gout/Pseudogout flare, UTI, - Time Spent with Patient Total time spent providing and/or coordinating discharge services: Greater than 30 minutes Medical - DS: Exam - Constitutional Vitals: Vital Signs Temp Resp BP BP Pulse Ox 07/12/18 07:16 98.6 F 18 130/62 92 07/12/18 04:00 97.8 F 16 153/75 92 07/12/18 00:00 99.2 F H 18 164/72 94 07/11/18 20:00 97.8 F 18 166/83 93 07/11/18 16:00 97.7 F 18 118/67 91 07/11/18 10:57 97.8 F 18 121/72 92 Intake and Output 07/11/18 07/12/18 07/12/18 21:59 05:59 13:59 Intake Total 200 / 200 100 / 100 Output Total 152 / 152 Balance 48 / 48 97 / 97 - / 1 Intake: IV 100 / 100 Oral 100 / 100 100 / 100 Output: Void Amount 150 / 150 # of times incontinent of urine 2 / 2 3 3 Other: Meal Breakfast Percent of Meal Consumed 75% Urine Appearance Clear Urine Color Dark Yellow Urine Odor Normal Stool Size Small Small Stool Color Brown Brown Stool Consistency Soft # Voids 1 4 # of times incontinent of 1 Bowels Weight 151 lb Additional comments: Constitutional; Afebrile, cooperative, alert, not in distress. Respiratory system: Air Entry equal on both sides, No crackles or wheezing, no rhonchi. CVS- Rate rhythm regular, S1,S2 heard, no gallop, no rub. 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 Medical - DS: Data Labs on day of discharge: Labs from last 24 hours 07/12/18 07/12/18 07/12/18 04:05 04:05 04:05 WBC 4.2 L RBC 3.32 L Hgb 9.7 L Hct 29.0 L MCV 87.6 MCH 29.2 MCHC 33.3 RDW 14.0 Plt Count 177 MPV 8.4 Gran % 74.4 Lymph % (Auto) 14.6 L [place] % (Auto) 10.6 Eos % (Auto) 0.1 Baso % (Auto) 0.3 Gran # 3.1 Lymph # (Auto) 0.6 L [place] # (Auto) 0.4 Eos # (Auto) 0 Baso # (Auto) 0 PT 22.2 H INR 2.0 H Sodium 140 Potassium 3.6 Chloride 104 Carbon Dioxide 22 Anion Gap 14.0 BUN 11 Creatinine 0.5 L GFR Calculation 96 Glucose 143 H Uric Acid 5.1 Calcium 8.0 L Phosphorus 1.5 L Magnesium 1.7 Total Bilirubin 0.4 Direct Bilirubin < 0.2 GGT 28 AST 91 H ALT 13 Alkaline Phosphatase 100 Lactate Dehydrogenase 270 H Total Protein 6.0 Albumin 2.5 L Globulin 3.5 Albumin/Globulin Ratio 0.7 L Triglycerides 71 Vancomycin Trough 07/11/18 07:59 WBC RBC Hgb Hct MCV MCH MCHC RDW Plt Count MPV Gran % Lymph % (Auto) [place] % (Auto) Eos % (Auto) Baso % (Auto) Gran # Lymph # (Auto) [place] # (Auto) Eos # (Auto) Baso # (Auto) PT INR Sodium Potassium Chloride Carbon Dioxide Anion Gap BUN Creatinine GFR Calculation Glucose Uric Acid Calcium Phosphorus Magnesium Total Bilirubin Direct Bilirubin GGT AST ALT Alkaline Phosphatase Lactate Dehydrogenase Total Protein Albumin Globulin Albumin/Globulin Ratio Triglycerides Vancomycin Trough 9.8 Preliminary micro results at discharge 07/07/18 18:30 Blood Culture - Preliminary Blood 07/07/18 18:37 Blood Culture - Preliminary Blood Medical - DS: A/P - Patient/Caregiver Discharge Instructions Activity: as per physical therapy, increase activity as tolerated Diet: Dysphagia Pureed ([place] thick liquid, Glucerna shakes [id number] three times a day ) Additional Instructions: Patient to take prednisone 20mg daily with food for another 6 days. He will follow up with Dr Mcintosh (Hand surgery) in 2 weeks, The patient is on coumadin for his Atrial fibrillation, Please check INR on Saturday and adjust the dose of coumadin per PCP GO to the ER if worsening condition, fever, chest pain, shortness of breath or any other acute concern Aspiration precautions Diet to be advanced per ST Patient to be transported by ambulance. - Follow up Plan Follow up with: Benji Lira MD [Primary Care Provider] - (Call for an appointment in 7-10 days.) Tin Mcintosh MD [Physician] - Disposition: Xf SNF Prognosis: Fair Rehab Potential: Fair I certify that the patient requires SNF services: No Overall status at discharge: patient is progressing back to baseline Medical - DS: Qual - VTE Deep Vein Thrombosis/Pulmonary Embolism Present on Admission: No
[2018-07-12] MEDS: cefTRIAXone 1 GM VIAL IV SCH (08:58)
[2018-07-12] MEDS ORDERED: NEUTRA PHOS 1 PACKET PO SCH (09:00)
[2018-07-12] MEDS ORDERED: DIGOXIN 125 MCG TABLET PO SCH (14:00)
== END 2018-07-12 11:15 | DRG 872 ==
LOC: ED 16:08 → ICU 19:37 → MEDSUR 07-10 14:03
PROVIDERS: ADMIT Internal Medicine; ATTEND Internal Medicine
CPT/HCPCS: 84145; 97161; 97167; 99152; 99223; 99231; A4606; G8996; G8997; G8998; J0131; J0692; J0696; J1170; J1644; J1817; J3370; J3475; J7030; J7040; J7050; J7120; Q9965; Q9967